=== PATIENT | male | born 1945 | race Caucasian/White ===

== ENCOUNTER 2023-12-10 19:57 | Inpatient (IN) | payer OTHER, SELFPAY ==
[2023-12-10 10:29] VITALS: BP 159/99
--- NOTE | 2023-12-10 11:14 | ED.GENMED ---
History of Present Illness
<Amna Ames PA-C - Last Filed: 12/10/23 17:45>
General
Chief Complaint: Swelling
Source: patient
Exam Limitations: none
Time Seen by Provider: 12/10/23 11:05
Nursing documentation reviewed up to this point in time: agreed with
Travel History
Have you had any contact with someone who has COVID-19?: No
Do you have any symptoms of coronavirus? Fever > 100 degrees, chills, cough, shortness of breath, sore throat, loss of taste or smell, muscle aches, or headache?: No
History of Present Illness
History of Present Illness:
Patient is a 78 year old male with hx afib on eliquis presenting for evaluation of atraumatic left wrist and elbow pain and swelling. Patient first noticed symptoms yesterday morning when he woke and has been worsening since. He denies any fever,
chills, chest pain, or shortness of breath. He denies any recent falls or trauma to left upper extremity. He denies any recent viruses or illnesses. No known bug bites or recent wounds on left hand.
Patient is compliant with eliquis. No history of gout.
Past History
<Amna Ames PA-C - Last Filed: 12/10/23 17:45>
Past History
ED Past Medical History: Arrthythmia (Atrial fibrillation), Asthma, CHF, GERD, HTN and Other (Melanoma, chronic kidney disease, admission for pneumonia November 2017, Lambert-Eaton myasthenic syndrome diagnosed 09/2022)
ED Past Surgical History: Other (Agree with documented past surgical history)
Social History
Tobacco: Former smoker
Alcohol: Daily
Drug: None
Personal:
Living: with family
Employment: Retired
Family History
Family History: Other (Reviewed and noncontributory)
Phy Exam
<Amna Ames PA-C - Last Filed: 12/10/23 17:45>
Physical Exam
Physical Exam:
General: In mild distress due to pain and non-toxic
Vitals: Hypertensive, otherwise VSS; afebrile
HEENT: protecting airway
Neck: appears supple
CV: RRR, heart sounds normal; no evidence of cyanosis
Resp: No evidence of respiratory distress, lungs clear; no accessory muscle use
Abd: Non-distended
Extremities: Redness and swelling of left wrist with obvious joint effusion; tenderness to lateral aspect of left elbow without any notable erythema or effusion
Neuro: alert and oriented to person, place, time; speech normal, no focal neurologic deficits
Psych: Normal affect
Skin: Intact, erythema and swelling of left wrist and hand
Scores
<Amna Ames PA-C - Last Filed: 12/10/23 17:45>
Heart Failure Risk
Heart Failure Risk Score: Not Applicable
Course
<KALLIE Somers Last Filed: 12/10/23 17:45>
Orders/Labs/Results
Orders:
Orders
12/10/23 11:17
Elbow, 3 view, Left [CR Elbow - Left Min 3 Views ] Urgent
Comment:
Reason For Exam: atraumatic left elbow pain
Wrist, Left 3 Views CR [CR Wrist - Left Min 3 Views] Urgent
Comment:
Reason For Exam: atraumatic pain and swelling left wrist/left hand
12/10/23 12:51
Oxycodone [Roxicodone] 10 mg PO NOW STA
12/10/23 13:28
Body Fluid Cell Count Urgent
What is the Body Fluid: joint
Date Specimen was Collected: 12/10/23
Time Specimen was Collected: 13:00
Comment: with DIFF
Fluid Culture with Gram Stain Urgent
DEYSI Source: Joint Fluid
Specimen Description:
Date Specimen was Collected: 12/10/23
Time Specimen was Collected: 13:00
12/10/23 13:42
C-Reactive Protein Urgent
Comment: ADD ON
Complete Blood Count/With Diff Urgent
Comprehensive Metabolic Panel Urgent
ESR [Erythrocyte Sed Rate] Urgent
Lyme Progressive Urgent
12/10/23 14:45
Add On- LAB Stat
Tests Added?: crp
12/10/23 15:57
Acetaminophen [Tylenol] 1,000 mg PO NOW STA
12/10/23 16:09
CefTRIAXone [Rocephin] 1,000 mg IV NOW STA
12/10/23 16:10
Morphine Sulfate 4 mg IV NOW STA
12/10/23 16:11
ORTHOPEDIC CONSULT Urgent
Consulting Provider: Dereck Estrella
Was physician already notified: Yes
12/10/23 16:18
Vancomycin [Vancocin] 2,000 mg 0.9% Sodium Chloride 500 ml [Nss] 500 ml IV NOW
12/10/23 16:58
Lactic Acid Routine
12/10/23 17:29
HYDROmorphone [Dilaudid] 1 mg .ROUTE .STK-MED ONE
Abnormal Lab Results
12/10/23
13:42
WBC 12.4 H 10^3/uL
(4.8-10.8)
RBC 4.06 L 10^6/uL
(4.70-6.10)
Hct 38.8 L %
(39.0-52.0)
MCV 95.6 H fL
(80.0-94.0)
MCH 32.3 H pg
(27.0-31.0)
Absolute Neuts (auto) 10.0 H 10^3/uL
(1.4-6.5)
Absolute Monos (auto) 0.9 H 10^3/uL
(0.1-0.6)
Neutrophils % 80.7 H %
(42.2-75.2)
Lymphocytes % 11.6 L %
(20.5-51.1)
ESR 50 H mm/hour
(0-20)
BUN 25 H mg/dl
(9-20)
Creatinine 1.5 H mg/dL
(0.7-1.3)
Glucose 109 H mg/dl
(70-99)
C-Reactive Protein 59.20 H mg/L
(0.0-10.00)
Total Protein 8.6 H g/dl
(6.3-8.2)
12/10/23 13:42
12/10/23 13:42
Vital Signs
Initial and Last Documented VS:
Initial Vital Signs
Temp Pulse Resp BP Pulse Ox
98.3 F 94 16 159/99 100
12/10/23 10:29 12/10/23 10:29 12/10/23 10:29 12/10/23 10:29 12/10/23 10:29
Last Documented Vital Signs
Temp Pulse Resp BP Pulse Ox
99.7 F 92 17 188/100 99
12/10/23 17:17 12/10/23 17:17 12/10/23 17:17 12/10/23 17:17 12/10/23 17:17
<Moncho Barreto, - Last Filed: 12/10/23 14:47>
Orders/Labs/Results
Orders:
Orders
12/10/23 11:17
Elbow, 3 view, Left [CR Elbow - Left Min 3 Views ] Urgent
Comment:
Reason For Exam: atraumatic left elbow pain
Wrist, Left 3 Views CR [CR Wrist - Left Min 3 Views] Urgent
Comment:
Reason For Exam: atraumatic pain and swelling left wrist/left hand
12/10/23 12:51
Oxycodone [Roxicodone] 10 mg PO NOW STA
12/10/23 13:28
Body Fluid Cell Count Urgent
What is the Body Fluid: joint
Date Specimen was Collected: 12/10/23
Time Specimen was Collected: 13:00
Comment: with DIFF
Fluid Culture with Gram Stain Urgent
DEYSI Source: Joint Fluid
Specimen Description:
Date Specimen was Collected: 12/10/23
Time Specimen was Collected: 13:00
12/10/23 13:42
C-Reactive Protein Urgent
Comment: ADD ON
Complete Blood Count/With Diff Urgent
Comprehensive Metabolic Panel Urgent
ESR [Erythrocyte Sed Rate] Urgent
Lyme Progressive Urgent
12/10/23 14:45
Add On- LAB Stat
Tests Added?: crp
12/10/23 15:57
Acetaminophen [Tylenol] 1,000 mg PO NOW STA
12/10/23 16:09
CefTRIAXone [Rocephin] 1,000 mg IV NOW STA
12/10/23 16:10
Morphine Sulfate 4 mg IV NOW STA
12/10/23 16:11
ORTHOPEDIC CONSULT Urgent
Consulting Provider: Dereck Estrella
Was physician already notified: Yes
12/10/23 16:18
Vancomycin [Vancocin] 2,000 mg 0.9% Sodium Chloride 500 ml [Nss] 500 ml IV NOW
12/10/23 16:58
Lactic Acid Routine
12/10/23 17:29
HYDROmorphone [Dilaudid] 1 mg .ROUTE .STK-MED ONE
Abnormal Lab Results
12/10/23
13:42
WBC 12.4 H 10^3/uL
(4.8-10.8)
RBC 4.06 L 10^6/uL
(4.70-6.10)
Hct 38.8 L %
(39.0-52.0)
MCV 95.6 H fL
(80.0-94.0)
MCH 32.3 H pg
(27.0-31.0)
Absolute Neuts (auto) 10.0 H 10^3/uL
(1.4-6.5)
Absolute Monos (auto) 0.9 H 10^3/uL
(0.1-0.6)
Neutrophils % 80.7 H %
(42.2-75.2)
Lymphocytes % 11.6 L %
(20.5-51.1)
ESR 50 H mm/hour
(0-20)
BUN 25 H mg/dl
(9-20)
Creatinine 1.5 H mg/dL
(0.7-1.3)
Glucose 109 H mg/dl
(70-99)
C-Reactive Protein 59.20 H mg/L
(0.0-10.00)
Total Protein 8.6 H g/dl
(6.3-8.2)
12/10/23 13:42
12/10/23 13:42
Vital Signs
Initial and Last Documented VS:
Initial Vital Signs
Temp Pulse Resp BP Pulse Ox
98.3 F 94 16 159/99 100
12/10/23 10:29 12/10/23 10:29 12/10/23 10:29 12/10/23 10:29 12/10/23 10:29
Last Documented Vital Signs
Temp Pulse Resp BP Pulse Ox
99.7 F 92 17 188/100 99
12/10/23 17:17 12/10/23 17:17 12/10/23 17:17 12/10/23 17:17 12/10/23 17:17
Procedures
<Amna Ames PA-C - Last Filed: 12/10/23 17:45>
Incision/Drainage/Joint Aspiration
Left Dorsal Wrist:
Preparation: cleaned with Hibiclens
Type of procedure: aspiration
Nature of site: other
How much fluid was obtained?: small amount
Fluid description: cloudy
Treatment: bandaid applied
<Amna Ames PA-C - Last Filed: 12/10/23 17:45>
MDM/Problems Addressed
Differential Diagnosis Includes:
inflammatory arthritis, gout, pseudogout, wrist fracture, septic arthritis, osteoarthritis
MDM/Problems Addressed:
Patient is a 78-year-old male with history A-fib, CHF, hypertension presenting for evaluation of atraumatic left wrist and elbow pain. Symptoms have been ongoing since yesterday�endorsing significant pain. No fever, chills. No history of gout.
No known bite or wound to area. Patient is in obvious distress on initial exam due to pain. He is hypertensive, afebrile. There is significant swelling and redness of left wrist with obvious effusion. There are some tenderness palpation on
lateral aspect of left elbow without any obvious effusion or redness. Suspect likely either inflammatory versus septic arthritis. Will give 10 mg oxycodone. Will check x-rays of left wrist and elbow.
X-ray showed no evidence of acute fracture or dislocation. Will perform arthrocentesis to discern whether inflammatory or septic. Will check basic labs, ESR and CRP.
Very small amount of cloudy fluid obtained during arthrocentesis of left wrist. Cell count of joint fluid shows WBC of 70,600 neutrophil predominant. Patient has mild leukocytosis 12.4 with left shift. CRP and ESR elevated. Mild renal
insufficiency noted on labs. Concern for septic arthritis. Discussed with orthopedics. Will admit to hospitalist for IV antibiotics and pain management. Starting IV vancomycin and IV ceftriaxone
Chronic conditions affecting care:
Atrial fibrillation, HTN, CHF
Acute Exacerbation and/or Progression of Chronic Illness:
Septic arthritis
<Amna Ames PA-C - Last Filed: 12/10/23 17:45>
*Radiology
Radiology exam reviewed: preliminary read by ED provider and radiology read reviewed
*Pulse Oximetry
Patient hypoxic: no
*Boilermaker Apprentice Interpretation
Rate: Boilermaker Apprentice- N/A
*Critical Care Note
Total Time (30-74mins, 75-104mins- exclusive of procedures): Not Applicable
<Moncho Barreto DO - Last Filed: 12/10/23 14:47>
Data Reviewed
Source: patient
Prescriptions/Medications Considered But Not Given:
Consider steroids but await fluid culture results
ED Attending Note
<Amna Ames PA-C - Last Filed: 12/10/23 17:45>
-
Portions of this chart may have been created with voice recognition software.� Occasional wrong word or��sound alike� substitutions may have occurred due to the inherent limitations of voice recognition software.
<Moncho Barreto DO - Last Filed: 12/10/23 14:47>
ED Attending Note
Patient seen and examined by attending physician: Yes
I performed the substantive portion of visit, reviewed & personally made and approve the management plan that is documented in note by myself or ROBERT.: Yes
ED Attending Note:
78-year-old male who presents with swelling and pain to left wrist. Also reports some pain to left elbow and is unsure if it is radiating or it is a separate problem. He denies fevers. He is a social alcohol drinker. Denies injury. Exam: Awake
and alert, left wrist with clear joint effusion and slight warmth and redness. Elbow without obvious joint effusion. Assessment and plan: Inflammatory versus septic. Check arthrocentesis and reassess
Discharge Plan
Departure
Patient Disposition: Admit
Date of Disposition: 12/10/23
Time of Disposition: 16:04
Presentation/result/management discussed w/ accepting MD/DO: Hospitalist
Discharge Problem:
Septic arthritis
Prescriptions:
No Action
torsemide 20 mg Tablet
40 mg PO DAILY
magnesium 250 mg Tablet
250 mg PO DAILY Qty: 0
acetaminophen 325 mg tablet
650 mg PO Q4HPRN PRN (Reason: mild pain/ fever>100.5F)
potassium 99 mg Tablet
99 mg PO DAILY
folic acid 1 mg Tablet
1 mg PO DAILY
Eliquis 2.5 mg tablet
2.5 mg PO BID
Referrals:
Peggy Rowell CRNP [Family Provider] -
Interventions
Interventions:
*Risk Screen - Suicide Last Done: 12/10/23 10:29
*General Assessment Last Done: 12/10/23 10:29
*Neglect/Abuse Screening Last Done: 12/10/23 10:29
ED- Fall Risk Assessment Last Done: 12/10/23 11:06
*ED COVID-19 Vaccine History Last Done: 12/10/23 11:06
ED- Pulmonary Assessment Last Done: 12/10/23 11:06
ED-Skin Assessment Last Done: 12/10/23 11:06
[2023-12-10] MEDS: ROXICODONE 10 MG PO (12:58)
[2023-12-10 13:57] LABS: % Basophils 0.1 % (0-2); % Eosinophils 0.2 % (0-6); % Immature Granulocytes 0.3 % (0-0.5); % Lymphocytes 11.6 % (20.5-51.1); % Monocytes 7.1 % (1.7-9.3); % Neutrophils 80.7 % (42.2-75.2); Absolute Lymphocytes 1.4 10^3/uL (1.2-3.4); Absolute Monocytes 0.9 10^3/uL (0.1-0.6); Hematocrit 38.8 % (39.0-52.0); Hemoglobin 13.1 g/dL (13.0-18.0); Mean Corp Hgb Conc. 33.8 g/dL (33.0-37.0); Mean Corpuscular Hgb 32.3 pg (27.0-31.0); Mean Corpuscular Volume 95.6 fL (80.0-94.0); Mean Platelet Volume 10.1 fL (7.4-10.4); Nucleated Red Blood Cells % 0 % (-); Platelet Count 185 10^3/uL (130-400); Red Blood Cell Count 4.06 10^6/uL (4.70-6.10); Red Cell Dist. Width 13.9 % (11.5-14.5); White Blood Cell Count 12.4 10^3/uL (4.8-10.8)
[2023-12-10 14:02] VITALS: BP 191/87
[2023-12-10 14:15] LABS: ALT (SGPT) 16 U/L (0-50); AST (SGOT) 25 U/L (17-59); Alkaline Phosphatase 65 U/L (38-126); Blood Urea Nitrogen 25 mg/dl (9-20); Calcium 9.9 mg/dl (8.4-10.2); Carbon Dioxide 23 mmol/L (22-30); Chloride 105 mmol/L (98-107); Glucose 109 mg/dl (70-99); Potassium 4.6 mmol/L (3.5-5.1); Sodium 138 mmol/L (135-145); Total Bilirubin 1.3 mg/dl (0.2-1.3); Total Protein 8.6 g/dl (6.3-8.2); eGFR 47.95
[2023-12-10 14:23] LABS: Erythrocyte Sed Rate 50 mm/hour (0-20)
[2023-12-10 14:27] LABS: Body Fluid WBC 70600 /CUMM
[2023-12-10 14:30] LABS: Body Fluid Second Tech SD
[2023-12-10 16:13] VITALS: BMI 34.8
[2023-12-10] MEDS: MORPHINE SULFATE 4 MG IV (16:23)
[2023-12-10] MEDS: ROCEPHIN 1000 MG IV (16:24)
--- NOTE | 2023-12-10 16:26 | HPS.HSE ---
Family Physician
-
Family Physician: TRUPTI Collins
Chief Complaint
-
Left wrist elbow joint pain
History of Present Illness
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 Prompted to visit the ED on second day when pain and swelling continue to
worsen. Left handed, denies any trauma at onset of symptoms. Reports history of coughing sore throat and some tongue swelling for the past week. Also endorses swollen lymph nodes same duration tender. Denies fever. Denies history of insect bite
or rash but also endorses son who lives with was diagnosed and treated for severe Lyme disease July 2023. Denies history of gout but also reports that he recently took care of his who had an acute gout flare for the past few weeks-endorses
that he and his have similar diet. Endorses drinking vodka on weekends 2 shots in a sitting. ED eval was significant for mild leukocytosis 12.4 mild inflammatory marker elevations CRP ESR. Arthrocentesis wrist effusion yielded white count
70,600. Mild tachycardia 90s attributable to pain, with leukocytosis however concerning for possible sepsis. No hypotension or lactic acidosis noted. Uric acid noted elevated at 9.4. Wrist and elbow x-rays were negative for acute abnormalities
except for effusion at elbow.
Medical History
Past Medical History
Past Medical History: Reports Other (as above)
Past Surgical History: Reports Other (as above)
Social History
Tobacco: Non-smoker
Alcohol: Occasional
Drug: None
Personal:
Living: With Family
Employment: Retired
Family History
Family History: Not pertinent (reviewed)
Allergies / Home Medications
Allergies reflects when Allergies were last updated in [employer]
Home Medications with original date entered in [employer]
Allergy/Medication List:
Allergies
Allergy/AdvReac Type Severity Reaction Status Date / Time
apple Allergy ITCHY MOUTH Verified 12/10/23 10:28
monosodium glutamate Allergy restless Verified 12/10/23 10:28
in bed
peach Allergy ITCHY MOUTH Verified 12/10/23 10:28
pollen extracts Allergy TRIGGERS Verified 12/10/23 10:28
ASTHMA
ragweed pollen Allergy TRIGGERS Verified 12/10/23 10:28
ASTHMA
Home Medications
magnesium 250 mg tablet 250 mg PO DAILY Supplement ##0 09/28/22
torsemide 20 mg tablet 40 mg PO DAILY Fluid retention/Swelling 09/28/22
acetaminophen 325 mg tablet 650 mg PO Q4HPRN PRN mild pain/ fever>100.5F 11/05/22
apixaban 2.5 mg tablet (Eliquis) 2.5 mg PO BID Blood Clot Prevention/Tx 12/10/23
folic acid 1 mg tablet 1 mg PO DAILY Supplement 12/10/23
potassium 99 mg tablet 99 mg PO DAILY Supplement 12/10/23
Review of Systems
-
A 12 point ROS was completed and negative except as noted: Yes
Constitutional: Reports Other (as below)
Physical Exam
Vital Signs
Vital Signs
Temp Pulse Resp BP Pulse Ox
98.9 F 98 20 191/87 98
12/10/23 14:02 12/10/23 14:02 12/10/23 14:02 12/10/23 14:02 12/10/23 14:02
Physical Exam
General: Other (as below)
Laboratory Results
-
12/10/23 13:42
12/10/23 13:42
Laboratory Results
Total Bilirubin 1.3 mg/dl (0.2-1.3) 12/10/23 13:42
AST 25 U/L (17-59) 12/10/23 13:42
ALT 16 U/L (0-50) 12/10/23 13:42
Alkaline Phosphatase 65 U/L (38-126) 12/10/23 13:42
Impression/Plan
-
ROS
General: Denies fever unexpected weight loss reports intermittent chills but appears more chronic in nature than acute
Neuro: Denies seizure shaking loss of consciousness dizziness vertigo
Psych: denies depression hallucinations confusion manic episodes
Endocrine: Denies polyuria polydipsia polyphagia heat/cold intolerance
HEENT: Denies blindness visual disturbances epistaxis reports nodular swelling neck tender sore throat coughing some tongue swelling
Pulmonary: Reports coughing denies hemoptysis sneezing sob dyspnea on exertion
Cardiovascular: denies chest pain palpitations leg swelling
Hematology: denies signs symptoms of anemia easy bruising/bleeding
Gastrointestinal: denies nausea vomiting diarrhea constipation hematemesis hematochezia melena
Genito-Urinary: denies retention incontinence dysuria
Musculoskeletal: Pain and swelling left wrist and elbow joints
Dermatology: denies rash laceration bruising
Physical Exam
General: No pallor, cyanosis, or jaundice.
HEENT: PERRLA Normocephalic atraumatic some throat erythema noted possible mild erythema and swelling also noted
NECK: Nodular tender lymph nodes palpable tender also possible thyroid nodules noted
RESPIRATORY: Lungs clear to auscultation. No crackles wheezes stridor. Respiratory status stable on room air
CVS: S1, S2 normal. RRR. No murmur, rub or gallop.
ABDOMEN: Soft, non-tender. No distension. BS+/normal.
EXTREMITIES: No peripheral cyanosis or edema. Significant restriction of motion left upper extremity due to pain otherwise rest of upper extremities lower extremities strength appears intact 5 out of 5
MACHINE DESIGN CHECKER: AOx3. 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
IMPRESSION:
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 Prompted to visit the ED on second day when pain and swelling continue to
worsen. Left handed, denies any trauma at onset of symptoms. Reports history of coughing sore throat and some tongue swelling for the past week. Also endorses swollen lymph nodes same duration tender. Denies fever. Denies history of insect bite
or rash but also endorses son who lives with was diagnosed and treated for severe Lyme disease July 2023. Denies history of gout but also reports that he recently took care of his who had an acute gout flare for the past few weeks-endorses
that he and his have similar diet. Endorses drinking vodka on weekends 2 shots in a sitting. ED eval was significant for mild leukocytosis 12.4 mild inflammatory marker elevations CRP ESR. Arthrocentesis wrist effusion yielded white count
70,600. Mild tachycardia 90s attributable to pain, with leukocytosis however concerning for possible sepsis. No hypotension or lactic acidosis noted. Uric acid noted elevated at 9.4. Wrist and elbow x-rays were negative for acute abnormalities
except for effusion at elbow.
PLAN:
#Possible septic arthritis versus gout flare
Telemetry admit
Orthopedic eval requested
ID eval requested
Continue empiric Vanco ceftriaxone
Trend WBC
Prednisone 15 mg twice a day started for possible gout flare, lowest dose and twice a day given concern possible interaction with Mestinon
Follow cultures
#Swollen lymph nodes
#Possible thyroid nodules
#Possible strep throat
Cervical ultrasound
Follow-up TSH reflex T4 in a.m.
Already on antibiotics as above
ID eval
#Mild Swollen tongue no respiratory issues
possible infection related vs nutritional deficiency
checking B12 Iron studies
starting multivitamin
#History of Lyme disease in family lives in the same household
#Polyarticular joint pain
ID eval as above
Less likely given above differentials though
#Paroxysmal A-fib
Will hold home Eliquis dose at this time given possible orthopedic intervention
#CHF
Appears euvolemic at this time
Daily weights I/O
Given concern possible gout flare will hold torsemide at this time
#Lambert-Eaton syndrome
Continue home Mestinon
RAFAT versus CKD 3
Initial creatinine 1.5 possible baseline versus RAFAT
Will monitor for now
DVT prophylaxis SCD
GI prophylaxis Protonix
Meds reconciled and resume as appropriate
Full code
I spent a total of 76 minutes with the patient or on the floor. More than 50% of this time involved counseling and coordination of care.
[2023-12-10] MEDS: VANCOCIN 540 MG IV (16:56)
[2023-12-10 17:02] LABS: Lyme Antibody Screen, EIA Negative (Negative)
[2023-12-10 17:17] VITALS: BP 188/100
[2023-12-10] MEDS: DILAUDID 1 MG IV (17:33)
[2023-12-10 17:58] LABS: Lactic Acid 0.8 mmol/L (0.7-2.0)
[2023-12-10 19:00] LABS: Uric Acid 9.4 mg/dl (3.5-8.5)
[2023-12-10 20:40] VITALS: BP 174/99
[2023-12-10 20:42] VITALS: BMI 34.5
--- NOTE | 2023-12-10 20:57 | PHA.VAN.IN ---
Assessment
- Assessment
Renal Function: Appears elevated from baseline (11/07/22 BASELINE SCR: 1.2)
Concomitant Antimicrobials: ROCEPHIN
- Previous Dosing Experience
Previous Regimen: SINGLE DOSE ONLY
Date of Regimen: 02/18/21
Provided Trough of: UNKNOWN
Provided AUC of: UNKNOWN
AUC Dosing Plan
- Dosing Variables
Dosing Weight (kg): 115.3
Dosing CrCl (ml/min): 55
Vd coefficient (L/kg): 0.6
- Empiric Dosing
Initial / Loading Dose: 2GM
Maintenance Regimen: 1750MG IV Q24H
Estimated AUC (mcg*h/mL): 531
Estimated Peak (mcg*h/mL): 36.2
Estimated Trough (mcg/ml): 12
Estimated Half Life (H): 13.8
Pharmacokinetics Vancomycin I
- -
Patient Age: 78
Patient Sex: Male
Vancomycin Day #: 1
Indication: [facility] (SEPTIC ARTHRITS)
Requesting Provider: SHARLA
Height / Weight:
Height 6 ft
Actual Weight 115.298 kg
Pertinent Past Medical History: OBESEITY
- Vital Signs / Lab Results
Temp Pulse Resp BP Pulse Ox
98.3 F 98 16 174/99 99
12/10/23 20:40 12/10/23 20:40 12/10/23 20:40 12/10/23 20:40 12/10/23 20:40
Lab Results - Hematology
12/10/23
13:42
WBC 12.4 H
Lab Results - Chemistry
12/10/23
13:42
BUN 25 H
Creatinine 1.5 H
Albumin 5.0
12/10/23
17:38
Lactic Acid 0.8
Microbiology Results
12/10/23 13:28 Gram Stain - Preliminary
Joint Fluid
[2023-12-10] MEDS: APRESOLINE 5 MG IV (21:24)
[2023-12-10] MEDS: DELTASONE 15 MG PO (21:25)
[2023-12-10] MEDS: DILAUDID 0.5 MG IV (21:25)
[2023-12-10] MEDS: TYLENOL 1000 MG PO (21:29)
[2023-12-10 23:38] VITALS: BP 145/89
[2023-12-11] MEDS: DILAUDID 0.5 MG IV ×2 (02:28→06:25)
[2023-12-11 03:05] VITALS: BP 144/80
[2023-12-11] MEDS: VANCOCIN 535 MG IV (06:25)
[2023-12-11 06:27] VITALS: BMI 33.7
[2023-12-11 07:24] LABS: Hematocrit 35.3 % (39.0-52.0); Mean Corpuscular Hgb 32.5 pg (27.0-31.0); Mean Corpuscular Volume 95.7 fL (80.0-94.0); Mean Platelet Volume 10.2 fL (7.4-10.4); Platelet Count 172 10^3/uL (130-400); Red Blood Cell Count 3.69 10^6/uL (4.70-6.10); Red Cell Dist. Width 13.7 % (11.5-14.5)
--- NOTE | 2023-12-11 07:28 | W.PN.HOSP.TC ---
Today's Communication/Plan
-
cont steroids
monitor off abx
follow cultures
PT/OT
Assessment / Plan
Assessment / Plan
Physical Exam
General: No pallor, cyanosis, or jaundice.
HEENT: PERRLA Normocephalic atraumatic
NECK: palpable Nodular thyroid nodules noted
RESPIRATORY: Lungs clear to auscultation. No crackles wheezes stridor.� Respiratory status stable on room air
CVS: S1, S2 normal. RRR.� No murmur, rub or gallop.
ABDOMEN: Soft, non-tender. No distension. BS+/normal.
EXTREMITIES: No peripheral cyanosis or edema.� Significant restriction of motion left upper extremity due to pain (since improved) otherwise rest of upper extremities lower extremities strength appears intact 5 out of 5
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
IMPRESSION:
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
worsen.� Left handed, denies any trauma at onset of symptoms.� Reports history of coughing sore throat and some tongue swelling for the past week.� Also endorses swollen lymph nodes same duration tender.� Denies fever.� Denies history of insect bite
or rash but also endorses son who lives with was diagnosed and treated for severe Lyme disease July 2023.� Denies history of gout but also reports that he recently took care of his who had an acute gout flare for the past few weeks-endorses
that he and his have similar diet.� Endorses drinking vodka on weekends 2 shots in a sitting.� ED eval was significant for mild leukocytosis 12.4 mild inflammatory marker elevations CRP ESR.� Arthrocentesis wrist effusion yielded white count
70,600.� Mild tachycardia 90s attributable to pain, with leukocytosis however concerning for possible sepsis.� No hypotension or lactic acidosis noted.� Uric acid noted elevated at 9.4.� Wrist and elbow x-rays were negative for acute abnormalities
except for effusion at elbow.
PLAN:
#Possible septic arthritis versus gout flare
Telemetry admit
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
Trend WBC
Prednisone 15 mg twice a day started for possible gout flare, lowest dose and twice a day given concern possible interaction with Mestinon
Follow cultures
#Swollen lymph nodes since resolved
#thyroid nodules
#Possible strep throat since resolved
Cervical ultrasound appreciated 2 thyroid nodules, follow-up surveillance recommended 1 year
TSH wnl
#Mild Swollen tongue no respiratory issues since resolved
B12 wnl
Iron studies noted mild iron deficiency possible anemia of chronic disease (oral iron supplementation started)
started multivitamin
#Paroxysmal A-fib
Will hold home Eliquis dose at this time given possible orthopedic intervention
#CHF
Appears euvolemic at this time
Daily weights I/O
Given concern possible gout flare will hold torsemide at this time
#Lambert-Eaton syndrome
Continue home Mestinon, monitor while on prednisone for gout, potential interaction
Neuro eval requested
RAFAT versus CKD 3
Initial creatinine 1.5 possible baseline versus RAFAT
Cr appears stable
cont to monitor
DVT prophylaxis SCD
GI prophylaxis Protonix
Full code
I spent a total of� 56� � minutes with the patient or on the floor. More than 50% of this time involved counseling and coordination of care.
Anticipated Discharge: 24 - 48 hours
Subjective/Interval History
-
Date of Service: December 11, 2023
No acute distress. Reports improvement in left arm symptoms pain swelling joints elbow and wrist
Objective Data
-
Labs:
Laboratory Results
12/11/23
06:13
WBC 12.0 H
Hgb 12.0 L
Hct 35.3 L
Plt Count 172
Sodium Pending
Potassium Pending
Chloride Pending
Carbon Dioxide Pending
BUN Pending
Creatinine Pending
Glucose Pending
Calcium Pending
Vital Signs:
Vital Signs
Temp Pulse Resp BP Pulse Ox
98.3 F 93 16 144/80 97
12/11/23 03:05 12/11/23 03:05 12/11/23 03:05 12/11/23 03:05 12/11/23 03:05
I&O
12/10/23 12/11/23 12/12/23
06:59 06:59 06:59
Intake Total 480 / 480
Balance 480 / 480
[2023-12-11 07:30] VITALS: BP 142/76
[2023-12-11] MEDS: DELTASONE 15 MG PO ×2 (07:38→20:59)
[2023-12-11] MEDS: FOLVITE 1 MG PO (07:38)
[2023-12-11] MEDS: PROTONIX 40 MG PO (07:38)
[2023-12-11] MEDS: THERAGRAN 1 TABLET PO (07:38)
[2023-12-11] MEDS: TYLENOL 1000 MG PO ×3 (07:38→20:59)
[2023-12-11] MEDS: MESTINON 60 MG PO ×2 (07:39→09:09)
[2023-12-11 08:13] LABS: Blood Urea Nitrogen 24 mg/dl (9-20); Calcium 9.1 mg/dl (8.4-10.2); Carbon Dioxide 19 mmol/L (22-30); Chloride 105 mmol/L (98-107); Estimated Creatinine Clearance 58 ml/min; Glucose 112 mg/dl (70-99); Iron 43 ug/dl (49-181); Potassium 4.4 mmol/L (3.5-5.1); Sodium 136 mmol/L (135-145); eGFR 52.09
[2023-12-11 08:22] LABS: Percent Saturation 12 % (20-50); Total Iron Binding Capacity 334 ug/dl (261-462)
[2023-12-11 08:44] LABS: TSH Reflex To Free T4 1.11 uIU/ml (0.47-4.68)
--- NOTE | 2023-12-11 08:57 | PHA.VAN.FU ---
Vancomycin Assessment / Plan
- Assessment
Renal Function: Stable
WBC's are: Stable
In the past 24 hrs, patient has been: Afebrile
Concomitant Antimicrobials: ceftriaxone
- Dosing Plan
Adjust Regimen to: dosing by level
Dosing Comments: suspect with BMI and SCR, will not follow population PK
Received 2g 12/10 16:56 PLUS 1750mg 12/11 06:25
- Monitoring Plan
Random Level: 12/12 0600
- Follow Up
Pharmacy will continue to follow.
Vancomycin Follow UP
- -
Patient Age: 78
Patient Sex: Male
Vancomycin Day #: 2
Indication: [facility]
Requesting Provider: Dr. Sharpe
Pertinent Antimicrobial Allergies:
no pertinent antibiotic allergies
Height / Weight:
Height 6 ft
Actual Weight 112.7 kg
Pertinent Past Medical History: BMI ~34, CKD
- Vital Signs / Lab Results
Temp Pulse Resp BP Pulse Ox
99.3 F 96 18 142/76 97
12/11/23 07:30 12/11/23 07:30 12/11/23 07:30 12/11/23 07:30 12/11/23 07:30
Lab Results - Hematology
12/10/23 12/11/23
13:42 06:13
WBC 12.4 H 12.0 H
Lab Results - Chemistry
12/10/23 12/11/23
13:42 06:13
BUN 25 H 24 H
Creatinine 1.5 H 1.4 H
Estimated Creat Clear 58
Albumin 5.0
12/10/23
17:38
Lactic Acid 0.8
Microbiology Results
12/10/23 13:28 Gram Stain - Preliminary
Joint Fluid
[2023-12-11 09:00] LABS: Vitamin B12 505 pg/ml (239-931)
--- NOTE | 2023-12-11 09:49 | CM ---
Patient seen bedside.
IA completed.
patient lives with spouse, son and grand-kids.
Patient and spouse have a basement apartment in the 3 story home, one flight down.
Patient ambulates with a cane,does have a RW available in the home.
Patient independent prior to admission.
Not current with [facility], but had [facility] in the past.
Denies home care needs at this time.
PCP: Dr Rowell
Pharmacy: [facility]
Plan:home no needs anticipated.
[2023-12-11 11:30] VITALS: BP 143/76
[2023-12-11] MEDS: DILAUDID 1 MG IV (12:09)
[2023-12-11] MEDS: MESTINON 120 MG PO ×3 (12:10→20:59)
--- NOTE | 2023-12-11 14:08 | W.PN.UPDATE ---
Update Note
Progress Note Update
Full H&P to follow
78-year-old male [id number] admitted for atraumatic left hand and wrist pain and swelling. Aspirate obtained in the ER with elevated WBC pending cultures and insufficient volume for crystal analysis. Currently on broad-spectrum
antibiotics and low-dose steroid
Patient was seen and examined by Dr. Youssef
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 His symptoms are likely improving with current treatment plan; ultrasound-guided aspirate was attempted of the left wrist with confirmed
intra-articular placement but no obvious effusion under ultrasound and none yielded into the syringe.
Continue with splint and soft tissue rest of the left hand.
Will continue to monitor cultures but otherwise recommend treating with current steroid and antibiotics; if cultures persist negative recommend focused treatment for inflammatory arthropathy
[2023-12-11] MEDS: APRESOLINE 5 MG IV (14:19)
[2023-12-11 15:15] VITALS: BP 132/69
--- NOTE | 2023-12-11 16:19 | CON.ID ---
Consultation
-
Date/Time Consultation Requested: 12/10/23 20:01
Date/Time Consultation Performed: 12/11/23 16:20
Requesting Provider: Dr Sharpe
Performing Provider: Dr Lantigua
Reason for Consultation: possible septic arthritis vs gout flare, also possible strep throat
Chief Complaint / Past History
Chief Complaint
Left wrist elbow joint pain
History of Present Illness
Mr Carter is a 78 year old male with history of Lambert-Eaton syndrome on mestinon, CHF, who presented here yesterday for left elbow and wrist swelling along with pain x2 days. No trauma. Does report cough and sore throat x 1 week along with
lymphadenopathy. No fevers. with recent gout flare and they have similar diet. No personal history of gout. Vodka 2 shots on the weekends.
Since arrival no fevers, bp stable, wbc count initially 12.4, hgb 12, plt 172, a L shift was noted, esr 50, cr 1.4 which is around his baseline, lactic acid 0.7, crp 59, uric acid 9.4, s/p arthrocentesis with 70K WBC, 95% PMNs, body fluid moderate
wbcs, body fluid crystals 'canceled' due to insufficient volume - no organisms Xray wrist and elbow: elbow effusion, patient started on steroids, vanc, cephalosporin, ID is consulted for assistance with managment.
Past History
Additional Past Medical History:
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
Past Surgical History: None
Allergy History:
apple Allergy (Verified 12/10/23 10:28)
ITCHY MOUTH
monosodium glutamate Allergy (Verified 12/10/23 10:28)
restless in bed
peach Allergy (Verified 12/10/23 10:28)
ITCHY MOUTH
pollen extracts Allergy (Verified 12/10/23 10:28)
TRIGGERS ASTHMA
ragweed pollen Allergy (Verified 12/10/23 10:28)
TRIGGERS ASTHMA
Medications Reviewed: Yes
Social History
Tobacco: Non-Smoker
Alcohol: Occasional
Drug: None
Family History
Family History: Not Pertinent
Review of Systems
Review of Systems
General: Negative Fever or Chills
All systems: All other systems were reviewed and were negative
Vital Signs
Temp Pulse Resp BP Pulse Ox
98.2 F 87 19 132/69 97
12/11/23 15:15 12/11/23 15:15 12/11/23 15:15 12/11/23 15:15 12/11/23 15:15
Physical Exam
Physical Exam
Constitutional: No Acute Distress
Cardiovascular: Regular Rate and S1/S2; Negative Murmur or Rub
Pulmonary: Clear and Symmetric; Negative Wheezes, Rales or Rhonchi
Gastrointestinal: Soft, Non Tender, Non Distended and Normal Bowel Sounds
Extremities: Other (mild swelling of the L elbow, no swelling of the L wrist (wrapped), not tenderness to light touch this afternoon)
Skin: Warm and Dry; Negative Rash or Jaundice
Lab / Diagnostic Study Results
12/11/23 06:13
12/11/23 06:13
Abs Immat Gran (auto) 0.0 10^3/uL (0-0.05) 12/10/23 13:42
Absolute Neuts (auto) 10.0 10^3/uL (1.4-6.5) H 12/10/23 13:42
Absolute Lymphs (auto) 1.4 10^3/uL (1.2-3.4) 12/10/23 13:42
Absolute Monos (auto) 0.9 10^3/uL (0.1-0.6) H 12/10/23 13:42
Absolute Basos (auto) 0.0 10^3/uL (0-0.2) 12/10/23 13:42
Immature Gran % 0.3 % (0-0.5) 12/10/23 13:42
Neutrophils % 80.7 % (42.2-75.2) H 12/10/23 13:42
Lymphocytes % 11.6 % (20.5-51.1) L 12/10/23 13:42
Monocytes % 7.1 % (1.7-9.3) 12/10/23 13:42
Eosinophils % 0.2 % (0-6) 12/10/23 13:42
Basophils % 0.1 % (0-2) 12/10/23 13:42
ESR 50 mm/hour (0-20) H 12/10/23 13:42
Lactic Acid 0.8 mmol/L (0.7-2.0) 12/10/23 17:38
C-Reactive Protein 59.20 mg/L (0.0-10.00) H 12/10/23 13:42
Microbiology Results
Micro:
12/10/23 13:28 Body Fluid Culture - Preliminary
Joint Fluid Gram Stain - Preliminary
Assessment / Plan
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
- body fluid suggestive of crystalline arthritis, gram stain no organisms, uric acid elevated
- stopped antibiotics
- continue steroids
- follow up with PCP
--- NOTE | 2023-12-11 16:42 | CON.ORTHO ---
Consultation
-
Date/Time Consultation Requested: 12/10/23 16:11
Date/Time Consultation Performed: 12/11/23 08:00
Requesting Provider: Dr. Adrien Lowery
Performing Provider: KALLIE Steve, Dr. Alan Youssef
Reason for Consultation: Left wrist pain
Consultation - Orthopedics
History
78-year-old [id number]-[id number] male presenting to the [place] emergency room 10 December 2023 for atraumatic wrist pain and swelling with significant past medical history of chronic kidney disease and Lambert-Eaton syndrome. Reported symptoms
ongoing for 2 days prior to evaluation at the emergency room. He was afebrile at that time and denies any recent trauma or injury when pain began. He does report a recent gout flare in a similar diet towards his which may be relative. He was
seen at the emergency room and underwent an aspiration by palpation after inflammatory markers were noted to be elevated which showed an elevated WBC count; orthopedics was consulted for concern for septic wrist. There is insufficient aspirate
volume for crystal testing and cultures are pending at this time
Allergies / Home Medications
Past History
Past Medical History: Arrthythmia (Atrial fibrillation), Asthma, CHF, GERD, HTN and Other (Melanoma, chronic kidney disease, admission for pneumonia November 2017, Lambert-Eaton myasthenic syndrome diagnosed 09/2022)
Past Surgical History: Verified
Social History
Tobacco: Former smoker
Alcohol: Daily
Drug: None
Personal:
Living: with family
Employment: Retired
Family History
Family History: Other (Reviewed and noncontributory)
Allergy/AdvReac Type Severity Reaction Status Date / Time
apple Allergy ITCHY MOUTH Verified 12/10/23 10:28
monosodium glutamate Allergy restless Verified 12/10/23 10:28
in bed
peach Allergy ITCHY MOUTH Verified 12/10/23 10:28
pollen extracts Allergy TRIGGERS Verified 12/10/23 10:28
ASTHMA
ragweed pollen Allergy TRIGGERS Verified 12/10/23 10:28
ASTHMA
Medication Instructions Recorded
magnesium 250 mg tablet 250 mg PO DAILY Supplement ##0 09/28/22
torsemide 20 mg tablet 40 mg PO DAILY Fluid 09/28/22
retention/Swelling
acetaminophen 325 mg tablet 650 mg PO Q4HPRN PRN mild pain/ 11/05/22
fever>100.5F
apixaban 2.5 mg tablet (Eliquis) 2.5 mg PO BID Blood Clot 12/10/23
Prevention/Tx
folic acid 1 mg tablet 1 mg PO DAILY Supplement 12/10/23
potassium 99 mg tablet 99 mg PO DAILY Supplement 12/10/23
pyridostigmine bromide 60 mg 120 mg PO QID MYESTHENIA 12/11/23
tablet (Mestinon)
Vital Signs / Lab Results
Temp Pulse Resp BP Pulse Ox
98.2 F 87 19 132/69 97
12/11/23 15:15 12/11/23 15:15 12/11/23 15:15 12/11/23 15:15 12/11/23 15:15
Physical examination: Examination of the left upper extremity shows edema and soft tissue swelling of the left wrist and hand. There is no specific effusion noted about the left wrist. No significant cellulitis or erythema. He is neurovascular
intact C5-T1 with sensation intact light touch the radial ulnar median nerve distributions motor function tact AIN PIN and ulnar nerve brisk capillary fill is 2 seconds. He has pain with generalized wrist range of motion and reduced hand motion
secondary to swelling as well as pain
12/11/23 06:13
12/11/23 06:13
Imaging: X-rays taken of the left wrist show no acute or significant chronic osseous abnormalities. No evidence of chondrocalcinosis
Labs: Labs other than detailed as above show current white count of 12, uric acid 9.4, CRP 59.20
-Cell count shows 70,600 left wrist aspirate with 95% polymorphonuclear cells. Culture pending
Assessment / Plan
78-year-old male with atraumatic left wrist and hand pain and swelling with elevated cell count with pending labs of cultures with improvement of symptoms with IV antibiotics as well as oral steroids
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
intra-articular placement but no obvious effusion under ultrasound and none yielded into the syringe.
Continue with splint and soft tissue rest of the left hand.
Will continue to monitor cultures but otherwise recommend treating with current steroid and antibiotics; if cultures persist negative recommend focused treatment for inflammatory arthropathy. Orthopedic surgery will continue to follow pending
culture results
[2023-12-11 19:27] VITALS: BP 145/85
[2023-12-11 23:45] VITALS: BP 146/75
[2023-12-12 03:15] VITALS: BP 159/91
[2023-12-12] MEDS: APRESOLINE 5 MG IV (04:00)
--- NOTE | 2023-12-12 04:40 | DOWNTIME ---
There was a [employer] Client Tourism Radio Presenter Downtime on 12/12/2023 from 0111 to 12/12/2023 at 0405. Downtime documentation of patient's care, including medication administrations, has been reconciled in the electronic record per guidelines. Refer to the
patient's paper chart under the miscellaneous tab to see printed paper medication records and downtime forms.
[2023-12-12 05:17] VITALS: BP 139/82
[2023-12-12 06:00] VITALS: BMI 34.0
--- NOTE | 2023-12-12 07:13 | W.PN.HOSP.TC ---
Addendum entered and electronically signed by Primo Sharpe MD 12/13/23 21:46:
Chronic HFpEF stable
Original Note:
Today's Communication/Plan
-
discharge
Assessment / Plan
Assessment / Plan
Physical Exam
General: No pallor, cyanosis, or jaundice.
HEENT: PERRLA Normocephalic atraumatic
NECK: palpable Nodular thyroid nodules noted
RESPIRATORY: Lungs clear to auscultation. No crackles wheezes stridor.� Respiratory status stable on room air
CVS: S1, S2 normal. RRR.� No murmur, rub or gallop.
ABDOMEN: Soft, non-tender. No distension. BS+/normal.
EXTREMITIES: No peripheral cyanosis or edema.� Significant restriction of motion left upper extremity due to pain (since improved) otherwise rest of upper extremities lower extremities strength appears intact 5 out of 5
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
IMPRESSION:
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
worsen.� Left handed, denies any trauma at onset of symptoms.� Reports history of coughing sore throat and some tongue swelling for the past week.� Also endorses swollen lymph nodes same duration tender.� Denies fever.� Denies history of insect bite
or rash but also endorses son who lives with was diagnosed and treated for severe Lyme disease July 2023.� Denies history of gout but also reports that he recently took care of his who had an acute gout flare for the past few weeks-endorses
that he and his have similar diet.� Endorses drinking vodka on weekends 2 shots in a sitting.� ED eval was significant for mild leukocytosis 12.4 mild inflammatory marker elevations CRP ESR.� Arthrocentesis wrist effusion yielded white count
70,600.� Mild tachycardia 90s attributable to pain, with leukocytosis however concerning for possible sepsis.� No hypotension or lactic acidosis noted.� Uric acid noted elevated at 9.4.� Wrist and elbow x-rays were negative for acute abnormalities
except for effusion at elbow.
PLAN:
#Possible septic arthritis versus gout flare (more likely gout flare)
Telemetry admit
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
Trend WBC
Prednisone 15 mg twice a day started for likely gout flare, lowest dose and twice a day given concern possible interaction with Mestinon
Follow cultures NGTD
#Swollen lymph nodes since resolved
#thyroid nodules
#Possible strep throat since resolved
Cervical ultrasound appreciated 2 thyroid nodules, follow-up surveillance recommended 1 year
TSH wnl
#Mild Swollen tongue no respiratory issues since resolved
B12 wnl
Iron studies noted mild iron deficiency possible anemia of chronic disease (oral iron supplementation started)
started multivitamin
#Paroxysmal A-fib
Eliquis held for possible orthopedic intervention
ok to resume on discharge.
#CHF
Appears euvolemic at this time
Daily weights I/O
Torsemide held due to concern gout flare. ok to resume on discharge
#Lambert-Eaton syndrome
Continue home Mestinon
likely CKD 3
Cr stable
DVT prophylaxis SCD
GI prophylaxis Protonix
Full code
Medically stable for discharge home with home services and outpatient follow up recommendations.
Total Time Preparing Discharge ___50____ minutes including examination of the patient, summary of the hospital stay, instructions for continuing care to all relevant caregivers; and preparation of discharge records, prescriptions, and referral
forms if necessary.
Anticipated Discharge: Today
Subjective/Interval History
-
Date of Service: December 12, 2023
No acute distress, reports feeling well. Pain controlled with current regimen. Denies new acute issues. Eager to go home.
Objective Data
-
Labs:
Laboratory Results
12/12/23
06:21
WBC Pending
Hgb Pending
Hct Pending
Plt Count Pending
Sodium Pending
Potassium Pending
Chloride Pending
Carbon Dioxide Pending
BUN Pending
Creatinine Pending
Glucose Pending
Calcium Pending
Vital Signs:
Vital Signs
Temp Pulse Resp BP Pulse Ox
97.9 F 75 16 139/82 97
12/12/23 03:15 12/12/23 03:15 12/12/23 03:15 12/12/23 05:17 12/12/23 03:15
I&O
12/11/23 12/12/23 12/13/23
06:59 06:59 06:59
Intake Total 480 / 480 1495 / 1495
Balance 480 / 480 1495 / 1495
[2023-12-12 07:30] VITALS: BP 152/62
[2023-12-12] MEDS: PROTONIX 40 MG PO (07:44)
[2023-12-12] MEDS: TYLENOL 1000 MG PO ×2 (07:45→15:34)
[2023-12-12] MEDS: THERAGRAN 1 TABLET PO (07:45)
[2023-12-12] MEDS: DELTASONE 15 MG PO (07:45)
[2023-12-12] MEDS: DILAUDID 0.5 MG IV ×2 (07:45→12:05)
[2023-12-12] MEDS: MESTINON 120 MG PO ×2 (07:45→12:05)
[2023-12-12] MEDS: FOLVITE 1 MG PO (07:45)
[2023-12-12 07:58] LABS: Hematocrit 34.1 % (39.0-52.0); Hemoglobin 11.7 g/dL (13.0-18.0); Mean Corp Hgb Conc. 34.3 g/dL (33.0-37.0); Mean Corpuscular Hgb 32.1 pg (27.0-31.0); Mean Corpuscular Volume 93.4 fL (80.0-94.0); Mean Platelet Volume 10.6 fL (7.4-10.4); Platelet Count 189 10^3/uL (130-400); Red Blood Cell Count 3.65 10^6/uL (4.70-6.10); Red Cell Dist. Width 13.8 % (11.5-14.5); White Blood Cell Count 11.4 10^3/uL (4.8-10.8)
--- NOTE | 2023-12-12 08:04 | W.PN.UPDATE ---
Update Note
Progress Note Update
Mr. Carter is resting comfortably in his chair this morning. He reports the pain, swelling and tenderness in his left wrist have improved since his initial admission. He does endorse slight increase in swelling of his left thumb, but otherwise has no
questions or concerns at this time. He is eager for discharge home.
Directed exam of the left upper extremity reveals short arm splint intact. Mild edema throughout the fingers and wrist. Hue of erythema overlying the wrist and thumb. No tenderness to palpation throughout the wrist or hand. Patient able to make
composite fist and fully extend fingers. Sensation intact to light touch. Capillary refill <2 seconds.
78-year-old male with atraumatic left wrist and hand pain and swelling with elevated cell count. Patient continues to improve with IV antibiotics and oral steroids.
--Labs pending this AM. Cultures pending.
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
--Will continue to monitor cultures but otherwise recommend treating with current steroid and antibiotics; if cultures persist negative recommend focused treatment for inflammatory arthropathy. Orthopedic surgery will continue to follow pending
culture results.
[2023-12-12 08:32] LABS: Blood Urea Nitrogen 30 mg/dl (9-20); Calcium 9.1 mg/dl (8.4-10.2); Carbon Dioxide 17 mmol/L (22-30); Chloride 108 mmol/L (98-107); Estimated Creatinine Clearance 63 ml/min; Glucose 122 mg/dl (70-99); Magnesium 2.2 mg/dl (1.6-2.3); Potassium 4.2 mmol/L (3.5-5.1); Sodium 136 mmol/L (135-145); eGFR 56.93
--- NOTE | 2023-12-12 08:52 | PN.CDI ---
CDI
- -
CDI:
Physician Documentation Request
Admit Date: 12/10/23 19:57
Dear Doctor Dell,
Clinical Indicators:
Patient admitted with likely crystalline arthropathy.
09/2022 Echo: EF 55-60%
10/2022 Discharge Summary includes diagnosis of Chronic diastolic congestive heart failure.
12/11 PN 'CHF appears euvolemic'
Please provide further specificity regarding the most likely type and acuity of CHF you are evaluating, treating or monitoring.
Chronic HFpEF
Other, please specify
Unable to determine
Use of terms such as suspected, likely, concern for, or probable (associated with a specific diagnosis that is being evaluated, monitored, or treated as if it exists) are acceptable and can be coded in the inpatient setting, when documented at the
time of discharge.
Thank you,
HERMAN Iverson RN
CDI Specialist
available via tiger text
Please use your independent medical judgment in providing your response.
[2023-12-12 11:47] VITALS: BP 159/75
--- NOTE | 2023-12-12 13:10 | W.PN.ID1 ---
Date of Service
Date of Service: December 12, 2023
Today's Communication
- remains well off of antibiotics
- continue steroids
- follow up with PCP
Assessment / Plan
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
- body fluid suggestive of crystalline arthritis, gram stain no organisms, uric acid elevated
- remains well off of antibiotics
- continue steroids
- lower extremity swelling per primary team
- follow up with PCP
Chief Complaint
-: Leukocytosis
Subjective / Review of Systems
remains afebrile
bp stable
with minimal leukocytosis
cr further improved
joint fluid no growth
Vital Signs / Physical Exam
Vital Signs
Vital Signs
Temp Pulse Resp BP Pulse Ox
97.9 F 81 14 159/75 97
12/12/23 11:47 12/12/23 11:47 12/12/23 11:47 12/12/23 11:47 12/12/23 11:47
Physical Exam
Constitutional: No Acute Distress
Cardiovascular: Regular Rate and S1/S2; Negative Murmur or Rub
Pulmonary: Clear and Symmetric; Negative Wheezes or Rales
Gastrointestinal: Soft, Non Tender, Non Distended and Normal Bowel Sounds
Extremities: Other (mild swelling of the L wrist - has compression, much less tender; 2+ edema of the lower extremities)
Skin: Warm and Dry; Negative Rash or Jaundice
Objective Data
Lab Data
Lab Results
12/12/23 06:21
12/12/23 06:21
ESR 50 mm/hour (0-20) H 12/10/23 13:42
Estimated Creat Clear 63 ml/min 12/12/23 06:21
Lactic Acid 0.8 mmol/L (0.7-2.0) 12/10/23 17:38
Total Bilirubin 1.3 mg/dl (0.2-1.3) 12/10/23 13:42
AST 25 U/L (17-59) 12/10/23 13:42
ALT 16 U/L (0-50) 12/10/23 13:42
Alkaline Phosphatase 65 U/L (38-126) 12/10/23 13:42
C-Reactive Protein 59.20 mg/L (0.0-10.00) H 12/10/23 13:42
Most recent labs reviewed.
Micro Results:
12/10/23 13:28 Body Fluid Culture - Preliminary
Joint Fluid No Growth After 18-24 Hours
Gram Stain - Preliminary
--- NOTE | 2023-12-12 14:35 | CM ---
Patient for d/c home.
PT recommending home care.
Patient requesting [facility], had them in the past.
Plan: home wit [facility]
--- NOTE | 2023-12-12 15:20 | VNURNOTE ---
Received request for VN referral. Call placed to patient's hospital room- no answer. Call placed to patient's contact number listed- no answer. Patient is discharged today and has had VN in the past. Referral placed in [facility].
--- NOTE | 2023-12-12 15:31 | W.DCSUMMARY ---
Discharge Summary
Discharge Data
Date of Admission: 12/10/23
Date of Discharge: 12/12/23
-
Pending Results: Yes
Additional Pending Results:
official culture results
Hospital Course
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
any trauma at onset of symptoms.� Reported history of coughing sore throat and some tongue swelling for the past week.� Also endorsed swollen lymph nodes same duration tender.� Denied history of gout but also reported that he recently took care of
his who had an acute gout flare for the past few weeks- endorsed that he and his have similar diet.� Endorsed drinking vodka on weekends 2 shots in a sitting.� ED eval was significant for mild leukocytosis 12.4 mild inflammatory marker
elevations CRP ESR.� Arthrocentesis wrist effusion yielded white count 70,600.� Mild tachycardia 90s attributable to pain, with leukocytosis however concerning for possible sepsis.� No hypotension or lactic acidosis noted.� Uric acid noted elevated
at 9.4.� Wrist and elbow x-rays were negative for acute abnormalities except for effusion at elbow. Possible septic arthritis versus gout flare (more likely gout flare). 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
empiric abx since discontinued. Prednisone 15 mg twice a day was started for likely gout flare, lowest dose and twice a day given concern possible interaction with Mestinon. Swollen lymph nodes since resolved. Thyroid nodules were found on US.
Cervical ultrasound appreciated 2 thyroid nodules, follow-up surveillance recommended 1 year. TSH wnl. Mild Swollen tongue no respiratory issues since resolved. B12 wnl. Iron studies noted mild iron deficiency possible anemia of chronic disease
(oral iron supplementation started). Swollen tongue possibly due to nutritional deficiencies, multivitamin was started. Paroxysmal A-fib, Eliquis was briefly held for possible orthopedic intervention, resumed on discharge. Chronic HFpEF, patient
was euvolemic during stay. Torsemide was briefly held due to concern gout flare, resumed on discharge. Medically stable, patient was discharged home with home services and outpatient follow up recommendations.
Discharge Plan
-
Patient Disposition: Home with Home Care
Discharge Diagnosis/Procedures: Gout vs pseudogout Flare, Mild Iron Deficiency, Anemia of Chronic disease, Chronic Kidney disease stage III, Lambert-Eaton Syndrome, Paroxysmal atrial fibrillation, Two Thyroid Nodules
Condition: Fair
Diet: 2 Gram Sodium
Activity: As tolerated
Driving Restrictions: Not until seen by your Dr
Bathing Restrictions: None
Blood Work: Please repeat cbc and BMP with primary care provider in 1 week of discharge.
Please repeat iron studies with primary care provider in 1 month of discharge
Others Tests: Please repeat Thyroid Ultrasound with primary care provider in 1 year of discharge to continue follow up of Thyroid Nodules
Other Services: VN, PT and OT
Specialty Instructions: Weigh Daily- Call MD for wt gain/loss 3 lbs overnight/5 lbs in 1 week
Activity Restrictions/Additional Instructions:
Please follow up with rheumatology and primary care provider in 1 week of discharge, orthopedic in 2 weeks of discharge, and neurology in 2-4 weeks of discharge.
Iron supplementation has been prescribed for mild iron deficiency. This is available over the counter. Multivitamin has been prescribed for nutrition support, this i also available over the counter.
Protonix has been prescribed for GI stress ulcer prophylaxis while on steroids such as prednisone.
Prednisone has been prescribed for gout vs pseudogout flare. Please follow up with Rheumatology or you Primary care provider within 1 week of discharge for further steroid taper recommendations/prescription.
Please continue taking mestinon for Lambert-Eaton syndrome as recommended by neurology. A refill prescription has been sent to your pharmacy.
Oxycodone has been prescribed as needed for severe pain, 5 day supply.
Please take medications as prescribed/recommended and follow up with your primary care provider and/or other healthcare provider involved in your care for refills and/or further adjustments to your medication regimen as necessary.
Instructions: Lifestyle Changes to Manage Gout, Gout (DC), Calcium Pyrophosphate Deposition DiseaseDischarge Instructions (DC)
Referrals:
Demar Mack MD [Active] - in two to four weeks
Lalito Alaniz MD [Active] - in one week
Alan Youssef MD [Active] - in two weeks
Peggy Rowell CRNP [Family Provider] - in one week
Prescriptions:
New
prednisone 5 mg Tablet
15 mg PO BID 7 Days Qty: 42 0RF
pantoprazole 40 mg Tablet,Delayed Release (Dr/Ec)
40 mg PO DAILY 30 Days Qty: 30 0RF
Rx Instructions:
ok to discontinue when off steroids/prednisone
ferrous sulfate [FeroSul] 325 mg (65 mg iron) Tablet
325 mg PO DAILY 30 Days Qty: 30 0RF
multivitamin with folic acid [Tab-A-Mary] 400 mcg Tablet
1 tab PO DAILY 30 Days Qty: 30 0RF
oxycodone 5 mg tablet
5 mg PO BID PRN (Reason: Pain) 5 Days Qty: 10 0RF
Continued
torsemide 20 mg Tablet
40 mg PO DAILY
magnesium 250 mg Tablet
250 mg PO DAILY Qty: 0
acetaminophen 325 mg tablet
650 mg PO Q4HPRN PRN (Reason: mild pain/ fever>100.5F)
potassium 99 mg Tablet
99 mg PO DAILY
folic acid 1 mg Tablet
1 mg PO DAILY
Eliquis 2.5 mg tablet
2.5 mg PO BID
pyridostigmine bromide [Mestinon] 60 mg Tablet
120 mg PO QID 30 Days Qty: 240 0RF
Discharge Orders:
Discharge Patient (As Directed); Ordered 12/12/23
Ordered By: Primo Sharpe
Discharge Date and Time
Discharge Date/Time: 12/12/23 16:24
== END 2023-12-12 16:24 | disposition home health service (06) | DRG 554 ==
LOC: 4 WEST ACU 19:57
PROVIDERS: Physician Assistant; ADMITTING PHYSICIAN Internal Medicine; CONSULT PHYSICIAN Student in an Organized Health Care Education/Training Program; EMERGENCY PHYSICIAN Emergency Medicine; FAMILY PHYSICIAN Nurse Practitioner Family; OTHER PHYSICIAN Orthopaedic Surgery
DX: M10.9 Gout, unspecified (principal); G70.80 Lambert-Eaton syndrome, unspecified; M00.9 Pyogenic arthritis, unspecified; I13.0 Hypertensive heart and chronic kidney disease with heart failure and stage 1 through stage 4 chronic kidney disease, or unspecified chronic kidney disease; I50.32 Chronic diastolic (congestive) heart failure; I48.0 Paroxysmal atrial fibrillation; N18.30 Chronic kidney disease, stage 3 unspecified; Z87.891 Personal history of nicotine dependence; J45.909 Unspecified asthma, uncomplicated; D63.8 Anemia in other chronic diseases classified elsewhere; E04.2 Nontoxic multinodular goiter
CPT/HCPCS: 20605; 73080; 73110; 76536; 80048; 80053; 82607; 82728; 83540; 83550; 83605; 83735; 84443; 84550; 85025; 85027; 85652; 86140; 86618; 87015; 87070; 87205; 89051; 96374; 96375; 97116; 97162; 97166; 99285

== ENCOUNTER → 2024-06-18 10:58 | Outpatient (REF) | payer MEDICARE, SELFPAY | LOC: HWRCS 10:58 | PROVIDERS: ATTENDING PHYSICIAN Internal Medicine Cardiovascular Disease; FAMILY PHYSICIAN Nurse Practitioner Family | DX: I50.32 Chronic diastolic (congestive) heart failure (principal) | CPT/HCPCS: 93306 ==

== ENCOUNTER 2024-10-15 21:27 | Observation (INO) | payer MEDICARE, OTHER, SELFPAY ==
[2024-10-15] VITALS (7 sets, daily range): BP systolic 151–168; BP diastolic 78–90; BMI 35.6
[2024-10-15 17:38] LABS: % Basophils 0.3 % (0-2); % Eosinophils 0.4 % (0-6); % Immature Granulocytes 0.3 % (0-0.5); % Lymphocytes 11.9 % (20.5-51.1); % Monocytes 7.4 % (1.7-9.3); % Neutrophils 79.7 % (42.2-75.2); Absolute Lymphocytes 0.9 10^3/uL (1.2-3.4); Absolute Monocytes 0.6 10^3/uL (0.1-0.6); Absolute Neutrophils 6.1 10^3/uL (1.4-6.5); Hematocrit 31.3 % (39.0-52.0); Hemoglobin 10.7 g/dL (13.0-18.0); Mean Corp Hgb Conc. 34.2 g/dL (33.0-37.0); Mean Corpuscular Hgb 31.5 pg (27.0-31.0); Mean Corpuscular Volume 92.1 fL (80.0-94.0); Nucleated Red Blood Cells % 0 % (-); Platelet Count 211 10^3/uL (130-400); Red Cell Dist. Width 15.2 % (11.5-14.5); White Blood Cell Count 7.7 10^3/uL (4.8-10.8)
[2024-10-15 17:55] LABS: ALT (SGPT) 23 U/L (0-50); AST (SGOT) 42 U/L (17-59); Albumin 4.3 g/dl (3.5-5.0); Alkaline Phosphatase 50 U/L (38-126); Blood Urea Nitrogen 28 mg/dl (9-20); Calcium 8.9 mg/dl (8.4-10.2); Carbon Dioxide 20 mmol/L (22-30); Chloride 103 mmol/L (98-107); Glucose 94 mg/dl (70-99); Potassium 4.1 mmol/L (3.5-5.1); Sodium 138 mmol/L (135-145); Total Bilirubin 0.8 mg/dl (0.2-1.3); eGFR 47.65
--- NOTE | 2024-10-15 18:28 | ED.GENMED ---
History of Present Illness
<Stella Singh PA-C - Last Filed: 10/21/24 18:58>
General
Chief Complaint: Head Injury
Source: patient
Exam Limitations: none
Time Seen by Provider: 10/15/24 16:59
Nursing documentation reviewed up to this point in time: agreed with
History of Present Illness
History of Present Illness:
79-year-old male with a history of CKD, paroxysmal A-fib on Eliquis, Lambert Eaton syndrome
Had a mechanical trip and fall forward last night around midnight when his right leg gave out on him and he landed on his right knee and then struck his head on the ground. He denies loss of consciousness but it took him about 30 minutes to get
himself up. He had a wound to his forehead but did not seek treatment. Today when his family member came to check on him for Ifrah they noticed a wound on his head provide blood and bruising under his left eye and patient was complaining of
mild headache, mild neck pain and right lower leg pain. He does take his Eliquis he says but missed today's dose. His right leg is a lot smaller swollen than his left but he does have chronic lymphedema. Patient was able to weight-bear. He is
not having any numbness tingling or weakness. He does not feel confused and his family member did not believe he was altered. He has not had severe worst headache of life, vision changes, chest pain or shortness of breath.
Past History
<Stella Singh PA-C - Last Filed: 10/21/24 18:58>
Past History
ED Past Medical History: Arrthythmia (Atrial fibrillation), Asthma, CHF, GERD, HTN and Other (Melanoma, chronic kidney disease, admission for pneumonia November 2017, Lambert-Eaton myasthenic syndrome diagnosed 09/2022)
ED Past Surgical History: Other (Agree with documented past surgical history)
Social History
Tobacco: Former smoker
Alcohol: Daily
Drug: None
Personal:
Living: with family
Employment: Retired
Family History
Family History: Other (Reviewed and noncontributory)
Review of Systems
<KALLIE Edgar Last Filed: 10/21/24 18:58>
Review of Systems
Allergies reviewed?: Yes
All Other Systems: Not applicable
Phy Exam
<KALLIE Edgar Last Filed: 10/21/24 18:58>
Physical Exam
Physical Exam:
GENERAL: Alert , in no apparent distress
HEAD: Linear laceration vertically oriented on the top of the forehead approximately 6 cm with a surrounding hematoma
Face: Ecchymosis under left eye, fully able to open his eye and move it without difficulty
No inferior orbital tenderness
NECK: No midline tenderness, placed in a c-collar
EYE: pupils equal and reactive, EOMs intact.
ENT: o/p clr, mmm. no hemotympanum
CARDIAC: Regular rate and rhythm, no edema
LUNGS: Clear breath sounds bilaterally, no acute respiratory distress, no wheezes/rales/rhonchi
ABDOMEN: Soft, without focal tenderness, no r/g, no cvat
NEUROLOGICAL: Alert and oriented, no focal neuro deficits, CN intact, 5/5 strength, sensation intact
SKIN: Warm and dry, flakey
MUSCULOSKELETAL: Significant lower extremity edema, lymphedema, right much greater than left, normal pulses, diffuse erythema circumferential without warmth
PSYCH: Normal and appropriate interaction.
Course
<KALLIE Edgar Last Filed: 10/21/24 18:58>
Orders/Labs/Results
Orders:
Orders
10/15/24 Breakfast
Sodium, 2 Gram
At Your Request: Limited Participation
Does patient need a safe tray?: No
10/15/24 14:27
CT Cervical Spine W/o Iv Contr Urgent
Comment:
Reason For Exam: fall last night, frontal head strike, neck pain
CT Head W/o Iv Contrast Urgent
Comment:
Reason For Exam: Fall last night, frontal head strike
10/15/24 17:19
Cardiac Monitoring- Treatment ONCE
CR Knee- Right 4 Or More View* Urgent
Comment:
Reason For Exam: swollen knee, fall
CR Leg Tibia/fibula Right 2 Vw Urgent
Comment:
Reason For Exam: leg pain fall
Venous Doppler Lwr Ext Rt [US Perip Venous LOWER Ext RT] Urgent
Comment:
Reason For Exam: leg pain sswelling
10/15/24 17:25
Complete Blood Count/With Diff Urgent
Comprehensive Metabolic Panel Urgent
10/15/24 17:43
CT Neck Angio W/wo Iv Contrast Urgent
Comment:
Reason For Exam: truama, c2 fracture
10/15/24 20:56
Acetaminophen [Tylenol] 1,000 mg PO NOW STA
10/15/24 21:00
Admit/Transfer Patient As Directed
Co-Sign Provider:
Level of Care: Observation services
Assign to:: Medical/Surgical
Physician / Group: Jasen
Diagnosis: C2 Fracture
Code Status As Directed
Resuscitation Status: Full Code
PRN Pain Medication Management As Directed
May give lesser potent ordered pain med per pt: Yes
preference::
Protocol:: Medication orders for pain may be administered in a
manner that supports deferring to patient preference
when the pt is:
- Requesting an ordered lesser potent pain medication.
Least to most potent pain medications are defined
as: acetaminophen < NSAID < tramadol < opioids
(morphine, oxycodone, hydromorphone).
- Requesting a lesser dose of the same medication IF
ORDERED.
- Requesting a less intrusive route of administration
if both routes are prescribed by the provider (PO <
IV).
10/15/24 21:11
Ipratropium/Albuterol Sulfate [Duoneb] 3 ml INH R NOW ONE
10/15/24 21:57
Neurosurgery Consult Routine
Consulting Provider: Malka Franco
Was physician already notified: Yes
Activity As Directed
Activity Level: Out of Bed- Ad Lauren
With Assistance
Braces/Immobilizers As Directed
Type of Brace/Immobilizer: Cervical Collar- [place] J
I&O [Intake/ Output] As Directed
Frequency: q12h
Orthostatic Vital Signs As Directed
Orthostatic VS Frequency: BID
Vital Signs As Directed
Frequency: Per unit guidelines
Weight As Directed
Frequency: Daily
Ot Eval And Treat Routine
Treatment: Possible lymphedema treatment
Pt Eval And Treat Routine
Treatment: Possible lymphedema treatment
Activity Level: Out of Bed-Early Mobility
10/16/24 07:59
Basic Metabolic Panel IN AM
10/16/24 08:00
Apixaban [Eliquis] 5 mg PO BID
Torsemide [Demadex] 40 mg PO DAILY
Abnormal Lab Results
10/15/24
17:25
RBC 3.40 L 10^6/uL
(4.70-6.10)
Hgb 10.7 L g/dL
(13.0-18.0)
Hct 31.3 L %
(39.0-52.0)
MCH 31.5 H pg
(27.0-31.0)
RDW 15.2 H %
(11.5-14.5)
Absolute Lymphs (auto) 0.9 L 10^3/uL
(1.2-3.4)
Neutrophils % 79.7 H %
(42.2-75.2)
Lymphocytes % 11.9 L %
(20.5-51.1)
Carbon Dioxide 20 L mmol/L
(22-30)
BUN 28 H mg/dl
(9-20)
Creatinine 1.5 H mg/dL
(0.7-1.3)
10/15/24 17:25
10/15/24 17:25
Vital Signs
Initial and Last Documented VS:
Initial Vital Signs
Temp Pulse Resp BP Pulse Ox
36.7 C 76 18 152/78 97
10/15/24 14:23 10/15/24 14:23 10/15/24 14:23 10/15/24 14:23 10/15/24 14:23
Last Documented Vital Signs
Temp Pulse Resp BP Pulse Ox
36.7 C 93 22 162/84 97
10/16/24 15:18 10/16/24 15:18 10/16/24 15:18 10/16/24 15:18 10/16/24 15:18
<Gomez Castorena MD - Last Filed: 10/15/24 18:46>
Orders/Labs/Results
Orders:
Orders
10/15/24 Breakfast
Sodium, 2 Gram
At Your Request: Limited Participation
Does patient need a safe tray?: No
10/15/24 14:27
CT Cervical Spine W/o Iv Contr Urgent
Comment:
Reason For Exam: fall last night, frontal head strike, neck pain
CT Head W/o Iv Contrast Urgent
Comment:
Reason For Exam: Fall last night, frontal head strike
10/15/24 17:19
Cardiac Monitoring- Treatment ONCE
CR Knee- Right 4 Or More View* Urgent
Comment:
Reason For Exam: swollen knee, fall
CR Leg Tibia/fibula Right 2 Vw Urgent
Comment:
Reason For Exam: leg pain fall
Venous Doppler Lwr Ext Rt [US Periph Venous LOWER Ext RT] Urgent
Comment:
Reason For Exam: leg pain sswelling
10/15/24 17:25
Complete Blood Count/With Diff Urgent
Comprehensive Metabolic Panel Urgent
10/15/24 17:43
CT Neck Angio W/wo Iv Contrast Urgent
Comment:
Reason For Exam: truama, c2 fracture
10/15/24 20:56
Acetaminophen [Tylenol] 1,000 mg PO NOW STA
10/15/24 21:00
Admit/Transfer Patient As Directed
Co-Sign Provider:
Level of Care: Observation services
Assign to:: Medical/Surgical
Physician / Group: Jasen
Diagnosis: C2 Fracture
Code Status As Directed
Resuscitation Status: Full Code
PRN Pain Medication Management As Directed
May give lesser potent ordered pain med per pt: Yes
preference::
Protocol:: Medication orders for pain may be administered in a
manner that supports deferring to patient preference
when the pt is:
- Requesting an ordered lesser potent pain medication.
Least to most potent pain medications are defined
as: acetaminophen < NSAID < tramadol < opioids
(morphine, oxycodone, hydromorphone).
- Requesting a lesser dose of the same medication IF
ORDERED.
- Requesting a less intrusive route of administration
if both routes are prescribed by the provider (PO <
IV).
10/15/24 21:11
Ipratropium/Albuterol Sulfate [Duoneb] 3 ml INH R NOW ONE
10/15/24 21:57
Neurosurgery Consult Routine
Consulting Provider: Malka Franco
Was physician already notified: Yes
Activity As Directed
Activity Level: Out of Bed- Ad Lauren
With Assistance
Braces/Immobilizers As Directed
Type of Brace/Immobilizer: Cervical Collar- [place] J
I&O [Intake/ Output] As Directed
Frequency: q12h
Orthostatic Vital Signs As Directed
Orthostatic VS Frequency: BID
Vital Signs As Directed
Frequency: Per unit guidelines
Weight As Directed
Frequency: Daily
Ot Eval And Treat Routine
Treatment: Possible lymphedema treatment
Pt Eval And Treat Routine
Treatment: Possible lymphedema treatment
Activity Level: Out of Bed-Early Mobility
10/16/24 07:59
Basic Metabolic Panel IN AM
10/16/24 08:00
Apixaban [Eliquis] 5 mg PO BID
Torsemide [Demadex] 40 mg PO DAILY
Abnormal Lab Results
10/15/24
17:25
RBC 3.40 L 10^6/uL
(4.70-6.10)
Hgb 10.7 L g/dL
(13.0-18.0)
Hct 31.3 L %
(39.0-52.0)
MCH 31.5 H pg
(27.0-31.0)
RDW 15.2 H %
(11.5-14.5)
Absolute Lymphs (auto) 0.9 L 10^3/uL
(1.2-3.4)
Neutrophils % 79.7 H %
(42.2-75.2)
Lymphocytes % 11.9 L %
(20.5-51.1)
Carbon Dioxide 20 L mmol/L
(22-30)
BUN 28 H mg/dl
(9-20)
Creatinine 1.5 H mg/dL
(0.7-1.3)
10/15/24 17:25
10/15/24 17:25
Vital Signs
Initial and Last Documented VS:
Initial Vital Signs
Temp Pulse Resp BP Pulse Ox
36.7 C 76 18 152/78 97
10/15/24 14:23 10/15/24 14:23 10/15/24 14:23 10/15/24 14:23 10/15/24 14:23
Last Documented Vital Signs
Temp Pulse Resp BP Pulse Ox
36.7 C 93 22 162/84 97
10/16/24 15:18 10/16/24 15:18 10/16/24 15:18 10/16/24 15:18 10/16/24 15:18
<Stella Snigh PA-C - Last Filed: 10/21/24 18:58>
MDM/Problems Addressed
Differential Diagnosis Includes:
head injury, ICH, subdural, cervical fracture, facial fracture, dvt/pe, knee fracture, contusion
MDM/Problems Addressed:
leslie ferguson 79 y/o M
afib on eliquis, mechanical fall forward last night hit head, no LOC, on ground 30 minutes;
head laceration and hematoma
neuro intact
mild neck pain
ct head neg
ct neck shows:
IMPRESSION:
There is a linear fracture through the right C2 lateral mass which extends through the transverse foramen. Recommend dedicated CTA neck 2020 for possible associated vascular injury.
There is a lucency extending through the posterior aspect of the left inferior articular process of C2, suspicious for minimally displaced fracture.
Multilevel severe degenerative changes of the cervical spine with prominent osteophyte extending from C4 through T1.
D/W DR. franco from [facility] [place]
she recommended CTA to r/o vascular injury
the CTA was neg
cr is baseline
so i reached back out to her and she said that he could go home with c collar for 12 weeks hard collar
and f/u in the office
pt would like to go home but uses cane at baseline and i suspect will have hard time on feet so we will check gait prior to d/c home
2000- pt stood up to walk to bathroom and is wobbly enough to rquire PT eval
admit to hospitalist;
<Stella Singh PA-C - Last Filed: 10/21/24 18:58>
*Critical Care Note
Total Time (30-74mins, 75-104mins- exclusive of procedures): Not Applicable
ED Attending Note
<Stella Singh PA-C - Last Filed: 10/21/24 18:58>
-
Portions of this chart may have been created with voice recognition software.� Occasional wrong word or��sound alike� substitutions may have occurred due to the inherent limitations of voice recognition software.
<Gomez Castorena MD - Last Filed: 10/15/24 18:46>
ED Attending Note
Patient seen and examined by attending physician: Yes
I performed the substantive portion of visit, reviewed & personally made and approve the management plan that is documented in note by myself or RBOERT.: Yes
ED Attending Note:
I have seen and evaluated the patient with a [id number] encounter. I have spoken to the [PA] and involved in the medical history, the physical exam, medical decision making.
Evaluation and management service: agree unless noted differently below.
Results interpretation: agree unless noted differently below.
79-year-old man presenting to the emergency department after a fall. He fell hitting his face. He is on a blood thinner. He did not lose consciousness. He is having some mild neck pain. On exam patient is resting comfortably with cervical
collar in place. He is having cervical spine tenderness. He does have some left-sided periorbital ecchymoses and edema but extraocular muscles are intact as well as vision is grossly intact. No gross motor or sensory deficits. He does have a
laceration to his forehead. Concern for traumatic intracranial injury or cervical spine fracture. CT scan of the neck obtained which does show C2 fracture. Will discuss with neurosurgery here for further management.
Discharge Plan
Departure
Patient Disposition: Admit
Date of Disposition: 10/15/24
Time of Disposition: 19:58
Admit to: Med/Surg
Presentation/result/management discussed w/ accepting MD/DO: Hospitalist
Condition: Fair
Covid-19: Not Applicable
Discharge Problem:
Fall, Head injury, Laceration of face, C2 cervical fracture
Interventions
Interventions:
*Risk Screen - Suicide Last Done: 10/15/24 17:19
*General Assessment Last Done: 10/15/24 17:19
*Neglect/Abuse Screening Last Done: 10/15/24 17:19
ED- Fall Risk Assessment Last Done: 10/15/24 17:19
*ED COVID-19 Vaccine History Last Done: 10/15/24 17:19
*Nursing Disposition Last Done: 10/15/24 21:54
ED- Neurological Assessment Last Done: 10/15/24 15:35
ED-Skin Assessment Last Done: 10/15/24 15:35
Discharge Date and Time
Discharge Date/Time: 10/15/24 21:54
--- NOTE | 2024-10-15 20:03 | HPS.HSE ---
Family Physician
-
Family Physician: TRUPTI Collins
Chief Complaint
-
Fall with Head Injury
History of Present Illness
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 Patient sustained a fall last night and struck his head on the ground. Today his family came to visit him for
[place] and noticed the head wound and bruising under his left eye. Work-up in the ED revealed a C2 fracture. ED discussed with neurosurgery who recommended cervical collar for 12 weeks and follow-up in office. However patient is unstable on his
feet and unable to ambulate unassisted.
Medical History
Past Medical History
Past Medical History: Reports Other
Additional Past Medical History:
Chronic HFpEF
Paroxysmal Atrial Fibrillation
CKD Stage IIIB
Lambert-Eaton Syndrome
Chronic Lower Extremity Lymphedema
GERD
Melanoma
Past Surgical History: Reports Other
Additional Past Surgical History:
Multiple Moh's
Lithotripsy
Cataracts
Social History
Tobacco: Non-smoker
Alcohol: Occasional
Drug: None
Living: Alone
Employment: Retired
Family History
Family History: Not pertinent (reviewed)
Allergies / Home Medications
Allergies reflects when Allergies were last updated in [employer].
Home Medications with original date entered in [employer]
Allergy/Medication List:
Allergies
Allergy/AdvReac Type Severity Reaction Status Date / Time
apple Allergy ITCHY MOUTH Verified 12/10/23 10:28
monosodium glutamate Allergy restless Verified 12/10/23 10:28
in bed
peach Allergy ITCHY MOUTH Verified 12/10/23 10:28
pollen extracts Allergy TRIGGERS Verified 12/10/23 10:28
ASTHMA
ragweed pollen Allergy TRIGGERS Verified 12/10/23 10:28
ASTHMA
Home Medications
magnesium 250 mg tablet 250 mg PO DAILY Supplement ##0 09/28/22
torsemide 20 mg tablet 40 mg PO DAILY Fluid retention/Swelling 09/28/22
folic acid 1 mg tablet 1 mg PO DAILY Supplement 12/10/23
potassium 99 mg tablet 99 mg PO DAILY Supplement 12/10/23
ferrous sulfate 325 mg (65 mg iron) tablet (FeroSul) 325 mg PO DAILY 30 days #30 tabs 12/12/23
multivitamin with folic acid 400 mcg tablet (Tab-A-Mary) 1 tab PO DAILY 30 days #30 tabs 12/12/23
apixaban 5 mg tablet (Eliquis) 5 mg PO BID 10/15/24
Review of Systems
-
A 12 point ROS was completed and negative except as noted: Yes
Constitutional: Denies Fever or Chills
Cardiac: Reports Other (Reports increased lower extremity for which he took extra Torsemide on Sunday and Sunday); Denies Chest Pain or Palpitations
Physical Exam
Vital Signs
Vital Signs
Temp Pulse Resp BP Pulse Ox
98.1 F 95 18 163/81 96
10/15/24 14:23 10/15/24 20:00 10/15/24 20:00 10/15/24 20:00 10/15/24 20:00
Physical Exam
General: Comfortable and Conversant
HEENT: Anicteric and Other (Laceration Forehead; Bruising under left eye)
Respiratory: Clear and Non Labored Respirations
GI: Soft and Non Tender
Rectal: Deferred by Provider
Musculoskeletal: No Clubbing, No Cyanosis and Other (+4 chronic lower extremity lymphedema)
Skin: Warm and Dry (Chronic skin changes of bilateral lower extremities due to lymphedema)
Neuro: Awake, Alert, Oriented and Nonfocal/grossly intact
Psych: Calm
Laboratory Results
-
10/15/24 17:25
10/15/24 17:25
Laboratory Results
Total Bilirubin 0.8 mg/dl (0.2-1.3) 10/15/24 17:25
AST 42 U/L (17-59) 10/15/24 17:25
ALT 23 U/L (0-50) 10/15/24 17:25
Alkaline Phosphatase 50 U/L (38-126) 10/15/24 17:25
Data Reviewed
-
Diagnostic Radiology: Report Reviewed by me
CT Scan: Report Reviewed by me
Ultrasound: Report Reviewed by me
Lab Data: Labs Reviewed by me
Impression/Plan
-
Mechanical Fall resulting in C2 Fracture
-ED reviewed with Neurosurgery who recommends cervical collar for immobilization for 12 weeks and follow-up in office
-Consult PT/OT
-Check Orthostatic Vital Signs
Paroxysmal Atrial Fibrillation
-Consult Cardiology to recommendation for continued anticoagulation given frequent falls
-Continue Eliquis for now
Chronic HFpEF
-Continue Torsemide
-Monitor Is&Os and Daily Weights
CKD Stage IIIB
-Creatinine at baseline
Lambert-Eaton Syndrome
-Patient reports no longer taking Mestinon
-Encouraged outpatient follow-up with Neurology
Chronic Lower Extremity Lymphedema
-Continue torsemide
DVT proph: Eliquis
Code Status: Full Code
--- NOTE | 2024-10-15 20:42 | W.PN.UPDATE ---
Update Note
Progress Note Update
Patient seen in conjunction with TRUPTI. I agree the findings on history and physical as well as the assessment and plan.
Briefly disease a 79-year-old male with past medical history of paroxysmal atrial fibrillation on anticoagulation, chronic diastolic heart failure, Lambert Eaton syndrome, ambulates with a walker who suffered a mechanical fall at home at midnight
yesterday and presents to the emergency department ostensibly for management of a laceration on his forehead. Patient denies any loss of consciousness. He reports that he was walking when he is right leg gave out from some weakness. He fell and
force hit the side of the wall with his head and then tumbled to the floor. He was able to get up by himself and denied any confusion, seizure-like activity, somnolence or dizziness. Came to the emergency department that was later due to continued
bleeding from the forehead. He has a laceration that required stitches.
He had extensive imaging for trauma evaluation. Ultimately the images show a a thin linear fracture of the C2 lateral mass and small displacement. No vascular compromise. He has no hematoma and no intracranial bleed. Case discussed with
Anuel. Patient does not need surgery. He is to be on collar immobilization for 12 weeks. He has lambert eaton
He is hemodynamically stable here with a blood pressure of 160/80 pulse of 86 regular satting 96% on room air. CBC is unremarkable and unchanged from prior. Similarly is electrolytes BUN/creatinine were unremarkable and similar to prior.
On exam he is alert and oriented x3, sitting comfortably with neck collar. No focal neurological deficits. Normal insight. Cardiac exam was regular. He has chronic LE swelling with R > L since the fall. Dopplers negative for DVT.
Assessment and plan
1. Fall and neck fracture - High risk of subsquent fall as he has lambert eaton, uses a walker and is no on a neck collar with chronic anticoagulation. Lives at home with extended family
- admit to med/surg
- eliquis has essentially been held for about 24 hours, can restart in am
- neck collar applied
- pain control
- PT evaluation
- case management.
2. AFIB - pAFIB on eliquis. H/O CVA. Reports this is first ever tumble like this but high risk for subsequent. Risk benefit of AC needs balancing.
- cardiology consult
3. CHF w./ chronic LE edema
- continue torsemide for now
- elevate legs
4. Katy Chacon - Pt not currently on pyridostigmine. Has not followed with neurology since stopping
- outpatient neurology follow up
Code status - full code
DVT PPX - SCDs
[2024-10-15] MEDS: TYLENOL 1000 MG PO (21:03)
[2024-10-15] MEDS: DUONEB 3 ML INH (21:31)
--- NOTE | 2024-10-15 23:29 | PTCARENOTE ---
Pt arrived to floor via stretcher from the ED. Pt AAOx3, able to stand, take few steps with RN and single point cane to bed. Pt denies any dizziness/ lightheadedness. HR irreg, Pt reports chronic Afib. POX 98% on RA. Head laceration with 15 sutures
with dressing intact, scant drainage noted. Pt reports head pain 8/10, [facility] notified for pain medication, awaiting orders. C2 fracture with Cervical collar in place, pt denies neck pain at this time. B/L LE chronic lymphedema noted with
red inflamed, cellulitic looking in nature. Skin flaking off, no open areas noted. +3 pitting RLE, +2 LLE. Palpable peripheral pulses present. Left AC int capped at this time. Left posterior thigh large scab, open to air. Left knee ecchymosis noted,
denies pain. Bed alarm in place for pt safety. Pt understands need to call for assistance when needed. Call phillips in reach.
[2024-10-15] MEDS: ROXICODONE 5 MG PO (23:43)
[2024-10-16] MEDS: TYLENOL 1000 MG PO ×2 (04:13→13:20)
[2024-10-16 07:00] VITALS: BP 155/86
[2024-10-16] MEDS: DEMADEX 40 MG PO (08:13)
[2024-10-16] MEDS: ROXICODONE 5 MG PO (08:17)
[2024-10-16] MEDS: ELIQUIS 5 MG PO (08:17)
[2024-10-16 08:40] VITALS: BP 170/80; BP 179/93; BP 181/86; O2SAT 98
[2024-10-16 08:48] LABS: Blood Urea Nitrogen 24 mg/dl (9-20); Calcium 9.1 mg/dl (8.4-10.2); Carbon Dioxide 22 mmol/L (22-30); Chloride 105 mmol/L (98-107); Estimated Creatinine Clearance 53 ml/min; Glucose 103 mg/dl (70-99); Sodium 138 mmol/L (135-145); eGFR 47.65
[2024-10-16 09:00] VITALS: BP 170/80; BP 179/93; BP 181/86; PULSE 104; PULSE 93; PULSE 95; O2SAT 98
[2024-10-16 09:08] VITALS: BMI 35.3
--- NOTE | 2024-10-16 11:04 | W.PN.UPDATE ---
Update Note
Progress Note Update
Cardiology consult will be dictated.
I had a discussion with the patient about anticoagulation and the increased risk of bleeding associated with falls/head trauma. We talked about potentially stopping it, evaluating for non OAT options (Watchman), or continuing. For now pt prefers to
continue his current anticoagulation and he will contact me if he has more falls/trauma.
Please call with questions.
--- NOTE | 2024-10-16 12:56 | W.PN.HOSP.TC ---
Today's Communication/Plan
-
Discahrge home. No changes in meds.
Assessment / Plan
Assessment / Plan
79 man with Mechanical Fall resulting in C2 Fracture. Patient requests to go home. Feels safe at home.
He has capacity to make the choice to be discharged home.
1. Fracture
-ED reviewed with Neurosurgery who recommended cervical collar for immobilization for 12 weeks and follow-up in office
-Consulted PT/OT
2. Paroxysmal Atrial Fibrillation
-Consulted Cardiology to recommendation for continued anticoagulation given frequent falls
-Continue Eliquis for now was the recommendation
3. Chronic HFpEF
-Continue Torsemide
4. CKD Stage IIIB
-Creatinine at baseline
5. Lambert-Eaton Syndrome
-Patient reports no longer taking Mestinon
-Encouraged outpatient follow-up with Neurology
6. Chronic Lower Extremity Lymphedema
-Continue torsemide
DVT proph: Eliquis
Code Status: Full Code
Anticipated Discharge: Today
Subjective/Interval History
-
Date of Service: October 16, 2024
patient requests to go home. He has capacity to make this choice. He states that he has 'plenty of help' at home.
Objective Data
-
Labs:
Laboratory Results
10/16/24
07:59
Sodium 138
Potassium 4.0
Chloride 105
Carbon Dioxide 22
BUN 24 H
Creatinine 1.5 H
Glucose 103 H
Calcium 9.1
Vital Signs:
Vital Signs
Temp Pulse Resp BP Pulse Ox
98.3 F 91 20 155/86 96
10/16/24 07:00 10/16/24 08:13 10/16/24 07:00 10/16/24 08:13 10/16/24 07:00
I&O
10/15/24 10/16/24 10/17/24
06:59 06:59 06:59
Intake Total 900 / 900
Output Total 500 / 500 650 / 650
Balance -500 / -500 250 / 250
Review of Systems
-
History Source: Patient
All other systems: Reviewed and negative
Physical Exam
-
General: Well Developed, Well Nourished, No Apparent Distress, Comfortable and Obese
HEENT: Nose Appears Normal and Ears Appear Normal
Respiratory: Clear to Auscultation
Cardiac: Regular Rhythm and S1/S2
GI: Soft and Nontender
Musculoskeletal: No Clubbing, No Cyanosis, Edema, Right Lower Extrem and Edema, Left Lower Extrem
Skin: Warm, Dry and Rash (LE )
Neuro: Awake, Alert, Oriented and AO x 3
Psych: Calm
Data Reviewed
-
Labs: Labs Reviewed by me
--- NOTE | 2024-10-16 13:15 | CM ---
CM met with Jelani at bedside.
He lives in a basement apartment where he has a full kitchen, bedroom, bathroom, shower with shower chair, grab bars. He has a RW at home that he has used occasionally.
At time of my visit, Jelani had cervical collar on, has been cleared for discharge to home with recommendation for home care services. Jelani has declined VN, stating he will rest and home and follow up with physician after discharge.
Plan: Discharge to home with no services. VN offered and declined.
PCP: Peggy Rowell
Pharmacy: [facility]
--- NOTE | 2024-10-16 14:24 | W.DS.TRANS ---
DC Summary - [employer]
-
Discharge Instructions:
Discharge Diagnosis/Procedures C2 Fracture
Diet As tolerated
Activity With assistance,As tolerated
Driving Restrictions Not until seen by your Dr
Bathing Restrictions None
Instructions:
Stand-Alone Forms:
Changes to Home Medications: No
Discharge Medications:
DC Medications w/original date entered in [employer]
magnesium 250 mg tablet 250 mg PO DAILY Supplement ##0 09/28/22
torsemide 20 mg tablet 40 mg PO DAILY Fluid retention/Swelling 09/28/22
folic acid 1 mg tablet 1 mg PO DAILY Supplement 12/10/23
potassium 99 mg tablet 99 mg PO DAILY Supplement 12/10/23
acetaminophen 500 mg tablet 500 mg PO TID 10/15/24
apixaban 5 mg tablet (Eliquis) 5 mg PO BID Blood Clot Prevention/Tx 10/15/24
ferrous sulfate 325 mg (65 mg iron) tablet (FeroSul) 325 mg PO DAILY Supplement 10/16/24
multivitamin with folic acid 400 mcg tablet (Tab-A-Mary) 1 tab PO DAILY Supplement 10/16/24
Home Medication Changes
Pending Results: No
Total time spent discharging patient (in min): 36
--- NOTE | 2024-10-16 14:26 | W.DCSUMMARY ---
Discharge Summary
Discharge Data
Date of Admission: 10/15/24
Date of Discharge: 10/16/24
Total time spent discharging patient (in min): 36
-
Pending Results: No
Hospital Course
Principal Diagnosis:
Mechanical Fall resulting in C2 Fracture.
Chronic Diagnoses:�
Chronic HFpEF
Paroxysmal Atrial Fibrillation
CKD Stage IIIB
Lambert-Eaton Syndrome
Chronic Lower Extremity Lymphedema
GERD
Melanoma
Multiple Moh's
Lithotripsy
Cataracts
Consultations:�
Neurosurgery (in ED)
Cardiology
Procedures:�
None
Clinical course:�
79 man with Mechanical Fall resulting in C2 Fracture. Patient felt well today and requested to go home. Feels safe at home.
He has capacity to make the choice to be discharged home.
1. Fracture
-ED reviewed with Neurosurgery, who recommended cervical collar for immobilization for 12 weeks and follow-up in office.
2. Paroxysmal Atrial Fibrillation
-Consulted Cardiology to recommendation for continued anticoagulation given frequent falls
-Continue Eliquis was the recommendation
3. Chronic HFpEF
-Continue Torsemide at current dose.
4. CKD Stage IIIB
-Creatinine is at baseline. No meds were adjusted during his stay
5. Lambert-Eaton Syndrome
-Patient reports no longer taking Mestinon
-Encouraged outpatient follow-up with Neurology
6. Chronic Lower Extremity Lymphedema - at baseline
-Continue torsemide at current dose
As for the rest of his medical problems, they were stable during his hospital stay.
Discharge Plan
-
Patient Disposition: Home (Routine Discharge)
Discharge Diagnosis/Procedures: C2 Fracture
Condition: Good
Diet: As tolerated
Activity: With assistance and As tolerated
Driving Restrictions: Not until seen by your Dr
Bathing Restrictions: None
Referrals:
Peggy Rowell CRNP [Family Provider] - in less than 1 week
Additional Discharge Medication Instructions: Please follow up with neurosurgery
Prescriptions:
Continued
torsemide 20 mg Tablet
40 mg PO DAILY
magnesium 250 mg Tablet
250 mg PO DAILY Qty: 0
potassium 99 mg Tablet
99 mg PO DAILY
folic acid 1 mg Tablet
1 mg PO DAILY
Eliquis 5 mg Tablet
5 mg PO BID
acetaminophen 500 mg Tablet
500 mg PO TID
ferrous sulfate [FeroSul] 325 mg (65 mg iron) tablet
325 mg PO DAILY
multivitamin with folic acid [Tab-A-Mary] 400 mcg tablet
1 tab PO DAILY
Discharge Orders:
Discharge Patient (As Directed); Ordered 10/16/24
Ordered By: Aj Andrews
Discharge Date and Time
Print Language: MALAYSIAN
--- NOTE | 2024-10-16 14:51 | CON.NS ---
Consultation
-
Date/Time Consultation Performed: 10/16/2024; 15:00
Performing Provider: Israel
Chief Complaint
History of Present Illness
This is a neurosurgical consultation on 79-year-old gentleman, with active medical issues including CHF, atrial fibrillation on anticoagulation, Lambert-Eaton syndrome, who presented after sustaining a fall 2 nights prior. With his family came to
visit him for [place], they noted head bruising and advised that he present to the emergency room. He had a workup in the emergency room, which demonstrated bilateral C2 fractures. Ultimately, it was discussed with the patient to follow-up as an
outpatient did not need any urgent surgical intervention. However, given his coexisting comorbidities, and that he was unstable on his feet with a hard cervical collar, he was admitted for PT evaluation.
Patient seen and examined at bedside. He denies any obvious neck pain. Hard cervical collar is in place. He denies any numbness, tingling, or weakness in the upper or lower extremities. He did get evaluated by physical therapy, and ultimately
was cleared for discharge home.
Review of Systems
-
10 point review of systems including constitutional, ENT, cardiovascular, respiratory, GI, , endocrinologic, hematologic, musculoskeletal, neurologic, was performed, was negative, except for stated in HPI.
Medication and Allergies
Home Medications
Home Medications
�Medication �Instructions �Recorded
magnesium 250 mg tablet 250 mg PO DAILY Supplement ##0 09/28/22
torsemide 20 mg tablet 40 mg PO DAILY Fluid 09/28/22
retention/Swelling
folic acid 1 mg tablet 1 mg PO DAILY Supplement 12/10/23
potassium 99 mg tablet 99 mg PO DAILY Supplement 12/10/23
acetaminophen 500 mg tablet 500 mg PO TID 10/15/24
apixaban 5 mg tablet (Eliquis) 5 mg PO BID Blood Clot 10/15/24
Prevention/Tx
ferrous sulfate 325 mg (65 mg 325 mg PO DAILY Supplement 10/16/24
iron) tablet (FeroSul)
multivitamin with folic acid 400 1 tab PO DAILY Supplement 10/16/24
mcg tablet (Tab-A-Mary)
Allergies
Allergies
Allergy/AdvReac Type Severity Reaction Status Date / Time
apple Allergy ITCHY MOUTH Verified 12/10/23 10:28
monosodium glutamate Allergy restless Verified 12/10/23 10:28
in bed
peach Allergy ITCHY MOUTH Verified 12/10/23 10:28
pollen extracts Allergy TRIGGERS Verified 12/10/23 10:28
ASTHMA
ragweed pollen Allergy TRIGGERS Verified 12/10/23 10:28
ASTHMA
Physical Exam
-
Exam:
Awake, alert, no apparent distress.
Cranial nerves II through XII are grossly intact.
Forehead laceration.
Left periorbital ecchymosis.
Motor: 5/5 strength bilaterally in upper extremities lower extremities.
Sensation to light touch is intact in upper and lower extremities.
Ambulates with a cane.
Neck is supple
Breathing nonlabored
Cardiac: Regular rate
Abdomen is soft
Extremities are warm
CT of the cervical spine, as well as CTA of the neck was reviewed. Images were personally viewed and interpreted by me. There is evidence of C2 fracture that extends to the transverse foramen on the right, without any obvious evidence of
dissection of vertebral artery.
Additionally, there is fracture line through the left facet joint, involving the left inferior articular process, likely consistent with fracture as well. Minimal displacement is seen.
Problems
-
Problem Status Onset Code
C2 cervical fracture S12.100A
Laceration of face S01.81XA
Head injury S09.90XA
Fall W19.XXXA
Assessment / Plan
-
This is a 79-year-old gentleman that presented after sustaining a mechanical fall, with resultant C2 fractures bilaterally.
No urgent neurosurgical intervention is recommended for the fracture.
Maintain hard collar immobilization x 10 to 12 weeks.
Patient is to follow-up in the office at that time, with AP/lateral x-rays of the cervical spine.
Patient given new prescription for better fitting collar with pads.
Patient given my business card.
[2024-10-16 15:18] VITALS: BP 162/84
== END 2024-10-16 15:36 | disposition home or self-care (01) ==
LOC: 4 EAST ACU 21:27
PROVIDERS: Physician Assistant; Physician Assistant Medical; ADMITTING PHYSICIAN Internal Medicine; ATTENDING PHYSICIAN Internal Medicine; CONSULT PHYSICIAN Neurological Surgery; EMERGENCY PHYSICIAN Student in an Organized Health Care Education/Training Program; FAMILY PHYSICIAN Nurse Practitioner Family; OTHER PHYSICIAN Internal Medicine Cardiovascular Disease
DX: S12.190A Other displaced fracture of second cervical vertebra, initial encounter for closed fracture (principal); S01.81XA Laceration without foreign body of other part of head, initial encounter; S00.83XA Contusion of other part of head, initial encounter; W01.198A Fall on same level from slipping, tripping and stumbling with subsequent striking against other object, initial encounter; Y93.01 Activity, walking, marching and hiking; Y92.003 Bedroom of unspecified non-institutional (private) residence as the place of occurrence of the external cause; N18.32 Chronic kidney disease, stage 3b; I13.0 Hypertensive heart and chronic kidney disease with heart failure and stage 1 through stage 4 chronic kidney disease, or unspecified chronic kidney disease; I48.0 Paroxysmal atrial fibrillation; M47.812 Spondylosis without myelopathy or radiculopathy, cervical region; G70.80 Lambert-Eaton syndrome, unspecified; I89.0 Lymphedema, not elsewhere classified; J44.89 Other specified chronic obstructive pulmonary disease; M79.661 Pain in right lower leg; R51.9 Headache, unspecified; I50.32 Chronic diastolic (congestive) heart failure; K21.9 Gastro-esophageal reflux disease without esophagitis; Z89.011 Acquired absence of right thumb; Z85.820 Personal history of malignant melanoma of skin; Z79.01 Long term (current) use of anticoagulants; Z87.891 Personal history of nicotine dependence; Z87.01 Personal history of pneumonia (recurrent); Z86.73 Personal history of transient ischemic attack (TIA), and cerebral infarction without residual deficits; Z60.2 Problems related to living alone
CPT/HCPCS: 70450; 70498; 72125; 73564; 73590; 80048; 80053; 85025; 87070; 93971; 97163; 97166; 99285; G0378; Q9967

== ENCOUNTER 2025-05-10 11:56 | Inpatient (IN) | payer MEDICARE, OTHER, SELFPAY ==
[2025-05-10] VITALS (13 sets, daily range): BP systolic 110–172; BP diastolic 67–88; BMI 35.7; BMI 34.0
[2025-05-10 07:03] LABS: Hematocrit 29.3 % (39.0-52.0); Hemoglobin 9.6 g/dL (13.0-18.0); Mean Corp Hgb Conc. 32.8 g/dL (33.0-37.0); Mean Corpuscular Volume 88.5 fL (80.0-94.0); Nucleated Red Blood Cells % 0 % (-); Platelet Count 158 10^3/uL (130-400); Red Cell Dist. Width 18.4 % (11.5-14.5)
[2025-05-10 07:32] LABS: Blood Urea Nitrogen 28 mg/dl (9-20); Calcium 8.2 mg/dl (8.4-10.2); Carbon Dioxide 21 mmol/L (22-30); Chloride 104 mmol/L (98-107); Estimated Creatinine Clearance 49 ml/min; Glucose 109 mg/dl (70-99); Sodium 137 mmol/L (135-145); eGFR 41.01
[2025-05-10 09:16] LABS: Blood Urea Nitrogen 27 mg/dl (9-20); Calcium 8.6 mg/dl (8.4-10.2); Carbon Dioxide 22 mmol/L (22-30); Chloride 105 mmol/L (98-107); Estimated Creatinine Clearance 52 ml/min; Glucose 109 mg/dl (70-99); Potassium 3.3 mmol/L (3.5-5.1); Sodium 138 mmol/L (135-145); eGFR 44.10
--- NOTE | 2025-05-10 10:10 | ED.GENMED ---
History of Present Illness
General
Chief Complaint: Skin Problem
Source: patient
Exam Limitations: none
Time Seen by Provider: 05/10/25 07:19
Nursing documentation reviewed up to this point in time: agreed with
History of Present Illness
History of Present Illness:
79 yo male with h/o Afib on Eliquis, CHF, HTN,GERD, bilateral LE lymphedema presents for worsening swelling and redness bilateral LE's. He changed the dressing on the RLE and in doing so, pulled off some of the skin causing bleeding. Denies SOB,
fever, chest pain, abdominal pain.
Past History
Past History
ED Past Medical History: Arrthythmia (Atrial fibrillation), Asthma, CHF, GERD, HTN and Other (Melanoma, chronic kidney disease, admission for pneumonia November 2017, Lambert-Eaton myasthenic syndrome diagnosed 09/2022)
ED Past Surgical History: Other (Agree with documented past surgical history)
Social History
Tobacco: Former smoker
Alcohol: Daily
Drug: None
Personal:
Living: with family
Employment: Retired
Family History
Family History: Other (Reviewed and noncontributory)
Phy Exam
Physical Exam
Physical Exam:
GENERAL: No acute distress. A&Ox3.
CONSTITUTIONAL: Afebrile.
EYES: clear, conjunctivae normal
ENMT: moist mucus membranes, Pharynx nl
RESPIRATORY: Regular respirations, nonlabored, lungs clear.
CARDIOVASCULAR: Regular rate and rhythm, no murmurs, no rubs.
GI: Soft, nontender, normal BS
MUSCULOSKELETAL: Moves with ease. Well perfused.
SKIN: Bilateral LE significant lymphedema
PSYCH: Normal mood and affect. Well kept, interactive and appropriate
NEUROLOGIC: Awake, alert and oriented. No focal neurological deficits
Course
Orders/Labs/Results
Orders:
Orders
05/10/25 06:56
Basic Metabolic Panel Urgent
Complete Blood Count/With Diff Urgent
05/10/25 08:06
US Periph Venous LOWER Ext Husam Urgent
Comment:
Reason For Exam: swelling, wounds
05/10/25 08:41
BNP [NT-proBNP] Urgent
Basic Metabolic Panel Urgent
05/10/25 Lunch
Cholesterol Lowering
Cholesterol Lowering: Sodium, 2 Gram
05/10/25 11:44
Potassium Chloride [KCl] 20 meq PO NOW STA
05/10/25 11:45
Admit/Transfer Patient As Directed
Co-Sign Provider:
Level of Care: Inpatient admission
Assign to:: Medical/Surgical
Physician / Group: Lavelle Gonzalez - hospitalists
Diagnosis: L>R LE cellulitis
Reason for Hospitalization: L>R LE cellulitis - IV abx
Expected length of stay greater than two midnights?: Yes
ELOS- Estimated Length of Stay in days: 2
I certify the patient meets the requirements for IP care: Yes
VANCOMYCIN Pharmacy to Dose [VANCOCIN Pharmacy to Dose] 1 each Pharmacy To Prepare [Call Pharmacy To Prepare] 0 ml IV PER PROTOCOL
05/10/25 11:47
Code Status As Directed
Resuscitation Status: Full Code
PRN Pain Medication Management As Directed
May give lesser potent ordered pain med per pt: Yes
preference::
Protocol:: Medication orders for pain may be administered in a
manner that supports deferring to patient preference
when the pt is:
- Requesting an ordered lesser potent pain medication.
Least to most potent pain medications are defined
as: acetaminophen < NSAID < tramadol < opioids
(morphine, oxycodone, hydromorphone).
- Requesting a lesser dose of the same medication IF
ORDERED.
- Requesting a less intrusive route of administration
if both routes are prescribed by the provider (PO <
IV).
05/10/25 11:49
Acetaminophen [Tylenol] 650 mg PO NOW STA
05/10/25 11:53
Vancomycin [Vancocin] 2,000 mg 0.9% Sodium Chloride 500 ml [Nss] 500 ml IV NOW
05/10/25 12:00
CeFAZolin 2 GRAM [Ancef] 2 grams in 10 ml IV Q8H
05/10/25 12:08
Blood Culture Q30M
DEYSI Source: Blood/Venous
Specimen Description:
MRSA Screen Routine
DEYSI Source: Nose
Specimen Description:
05/10/25 12:23
Blood Culture Q30M
DEYSI Source: Blood/Venous
Specimen Description:
05/10/25 14:36
Acetaminophen [Tylenol] 650 mg PO Q4HPRN PRN
Bisacodyl [Dulcolax] 10 mg RECTAL [id number] PRN
Docusate W/Senna [Senokot-S] 1 tablet PO BIDPRN PRN
Ondansetron Injectable [Zofran] 4 mg IV Q6HPRN PRN
Polyethylene Glycol Powder [Miralax] 17 grams PO DAILYPRN PRN
05/10/25 14:36
WOUND/OSTOMY CONSULT Routine
Reason for Consult: Lymphedema chronic wounds
Activity As Directed
Activity Level: As Tolerated
Vital Signs As Directed
Frequency: Per unit guidelines
Wound Care As Directed
Location of Wound: bilateral LE
Treatment of Wound: saline irrigation to wound, wet to dry. CASEY compression bilaterally
DX Deep Vein Thrombosis Video Routine
05/10/25 20:00
Heparin 5,000 units SC Q12
05/11/25 06:00
Basic Metabolic Panel IN AM
Complete Blood Count/No Diff IN AM
Vancomycin Random IN AM
05/11/25 08:00
Torsemide [Demadex] 40 mg PO DAILY
Abnormal Lab Results
05/10/25 05/10/25
06:56 08:41
RBC 3.31 L 10^6/uL
(4.70-6.10)
Hgb 9.6 L g/dL
(13.0-18.0)
Hct 29.3 L %
(39.0-52.0)
MCHC 32.8 L g/dL
(33.0-37.0)
RDW 18.4 H %
(11.5-14.5)
Absolute Lymphs (auto) 1.1 L 10^3/uL
(1.2-3.4)
Lymphocytes % 17.4 L %
(20.5-51.1)
Monocytes % 10.1 H %
(1.7-9.3)
Potassium 3.3 L mmol/L
(3.5-5.1)
Carbon Dioxide 21 L mmol/L
(22-30)
BUN 28 H mg/dl 27 H mg/dl
(9-20) (9-20)
Creatinine 1.7 H mg/dL 1.6 H mg/dL
(0.7-1.3) (0.7-1.3)
Glucose 109 H mg/dl 109 H mg/dl
(70-99) (70-99)
Calcium 8.2 L mg/dl
(8.4-10.2)
05/10/25 06:56
05/10/25 08:41
Vital Signs
Initial and Last Documented VS:
Initial Vital Signs
Temp Pulse Resp BP Pulse Ox
97.5 F 82 16 122/69 97
05/10/25 06:04 05/10/25 06:04 05/10/25 06:04 05/10/25 06:04 05/10/25 06:04
Last Documented Vital Signs
Temp Pulse Resp BP Pulse Ox
97 F 85 13 129/76 96
07/20/25 14:14 05/10/25 14:14 05/10/25 14:14 05/10/25 14:14 05/10/25 14:14
MDM/Problems Addressed
MDM/Problems Addressed:
79 yo male with h/o Afib on Eliquis, CHF, HTN,GERD, bilateral LE lymphedema presents for worsening swelling and redness bilateral LE's. He changed the dressing on the RLE and in doing so, pulled off some of the skin causing bleeding. Denies SOB,
fever, chest pain, abdominal pain.
Afebrile, NAD
US: NO DVT
*Pulse Oximetry
SaO2: 97
Oxygen Mode of Delivery: Room air
Patient hypoxic: not evaluated
*Critical Care Note
Total Time (30-74mins, 75-104mins- exclusive of procedures): Not Applicable
ED Attending Note
-
Portions of this chart may have been created with voice recognition software.� Occasional wrong word or��sound alike� substitutions may have occurred due to the inherent limitations of voice recognition software.
Discharge Plan
Departure
Patient Disposition: Admit
Date of Disposition: 05/10/25
Time of Disposition: 10:39
Admit to: Med/Surg
Presentation/result/management discussed w/ accepting MD/DO: Hospitalist
Condition: Fair
Discharge Problem:
Bilateral cellulitis of lower leg, Multiple open wounds of left lower extremity
Interventions
Interventions:
*Risk Screen - Suicide Last Done: 05/10/25 06:04
*General Assessment Last Done: 05/10/25 06:04
*Neglect/Abuse Screening Last Done: 05/10/25 06:04
*ED- Fall Risk Assessment Last Done: 05/10/25 06:38
*ED COVID-19 Vaccine History Last Done: 05/10/25 06:42
*Nursing Disposition Last Done: 05/10/25 14:14
ED-Skin Assessment Last Done: 05/10/25 08:21
Discharge Date and Time
Discharge Date/Time: 05/10/25 14:31
--- NOTE | 2025-05-10 11:36 | HPS.HSE ---
Family Physician
-
Family Physician: OREN Jimenez
Chief Complaint
-
Cellulitis, chills, bleeding chronic wound
History of Present Illness
79 y/o M, hx of Afib on Eliquis, CHF, HTN, B/L LE lymphedema presents to ER for worsening swelling and redness to bilateral LEs. He reports performing his own dressing changes and yesterday he unwrapped his dressings to reveal LLE bleeding from
chronic wound. He also noticed worsening redness. He felt chills but no fever. No other complaints.
Medical History
Past Medical History
Past Medical History: Reports Other (Arrthythmia (Atrial fibrillation), Asthma, CHF, GERD, HTN and Other (Melanoma, chronic kidney disease, admission for pneumonia November 2017, Lambert-Eaton myasthenic syndrome diagnosed 09/2022))
Past Surgical History: Reports None
Social History
Tobacco: Former Smoker
Alcohol: Occasional
Drug: None
Personal:
Employment: Retired
Family History
Family History: Not pertinent
Allergies / Home Medications
Allergies reflects when Allergies were last updated in [facility].
Home Medications with original date entered in [facility]
Allergy/Medication List:
Allergies
Allergy/AdvReac Type Severity Reaction Status Date / Time
apple Allergy ITCHY MOUTH Verified 12/10/23 10:28
monosodium glutamate Allergy restless Verified 12/10/23 10:28
in bed
peach Allergy ITCHY MOUTH Verified 12/10/23 10:28
pollen extracts Allergy TRIGGERS Verified 12/10/23 10:28
ASTHMA
ragweed pollen Allergy TRIGGERS Verified 12/10/23 10:28
ASTHMA
Home Medications
magnesium 250 mg tablet 250 mg PO DAILY Supplement ##0 09/28/22
torsemide 20 mg tablet 40 mg PO DAILY Fluid retention/Swelling 09/28/22
folic acid 1 mg tablet 1 mg PO DAILY Supplement 12/10/23
potassium 99 mg tablet 99 mg PO DAILY Supplement 12/10/23
acetaminophen 500 mg tablet 500 mg PO TID 10/15/24
apixaban 5 mg tablet (Eliquis) 5 mg PO BID Blood Clot Prevention/Tx 10/15/24
ferrous sulfate 325 mg (65 mg iron) tablet (FeroSul) 325 mg PO DAILY Supplement 10/16/24
multivitamin with folic acid 400 mcg tablet (Tab-A-Mary) 1 tab PO DAILY Supplement 10/16/24
Review of Systems
-
A 12 point ROS was completed and negative except as noted: Yes
Physical Exam
Vital Signs
Vital Signs
Temp Pulse Resp BP Pulse Ox
97 F 75 18 113/73 97
05/10/25 08:20 05/10/25 10:06 05/10/25 08:22 05/10/25 08:22 05/10/25 10:16
Physical Exam
General: No Apparent Distress and Obese
HEENT: NormoCephalic and Anicteric
Respiratory: Clear; No Wheezes
Cardiac: S1/S2 and Regular Rhythm
Skin: Other (bilateral LE lymphedema with redness/warmth L>R. With LLE wound with dry, crusted blood. No active bleeding)
Neuro: AO x 3
Psych: Calm
Laboratory Results
-
05/10/25 06:56
05/10/25 08:41
Laboratory Results
Total Bilirubin Cancelled 05/10/25 06:56
AST Cancelled 05/10/25 06:56
ALT Cancelled 05/10/25 06:56
Alkaline Phosphatase Cancelled 05/10/25 06:56
Data Reviewed
-
Lab Data: Labs Reviewed by me
Impression/Plan
-
Assessment:
Chronic lymphedema with wounds - POA
Acute bilateral cellulitis L>R
- DVT study negative
- wound care evaluation
- check blood cultures (reported chills)
- IV Vanco/Ancef
- check MRSA swab
- compression therapy
Parox A. Fib
- rate controlled
- hold Eliquis for today - re-evaluate in AM for resumption after wound care eval
hx of Asthma
chronic HFpEF
- continue Torsemide
Essential HTN
- not on meds, monitor
CKD stage 3b
Hypokalemia
- replete K - 20 meq now
- AM labs
Lambert-Eaton myasthenic syndrome diagnosed 09/2022
DVT ppx: SC heparin
Code: Full
--- NOTE | 2025-05-10 11:50 | PHA.VAN.IN ---
Assessment
- Assessment
Renal Function: Appears similar to baseline
Concomitant Antimicrobials: ancef
Plan
- Plan
Initial / Loading Dose: 2000mg
Maintenance Regimen: prn by level
Monitoring: random 05/11 in am
Pharmacokinetics Vancomycin I
- -
Patient Age: 79
Patient Sex: Male
Vancomycin Day #: 1
Indication: Skin And Soft Tissue
Requesting Provider: Dr. Gonzalez
Height / Weight:
Height 6 ft
Actual Weight 119.4 kg
IBW in k.06
- Vital Signs / Lab Results
Temp Pulse Resp BP Pulse Ox
97 F 75 18 113/73 97
05/10/25 08:20 05/10/25 10:06 05/10/25 08:22 05/10/25 08:22 05/10/25 10:16
Lab Results - Hematology
05/10/25
06:56
WBC 6.2
Lab Results - Chemistry
05/10/25 05/10/25
06:56 08:41
BUN 28 H 27 H
Creatinine 1.7 H 1.6 H
Estimated Creat Clear 49 52
Albumin Cancelled
[2025-05-10] MEDS: KCL 20 MEQ PO (12:05)
[2025-05-10] MEDS: TYLENOL 650 MG PO ×3 (12:05→20:21)
[2025-05-10] MEDS: ANCEF 10 IV ×2 (12:28→20:20)
[2025-05-10] MEDS: VANCOCIN 540 MG IV (13:25)
[2025-05-11] MEDS: ANCEF 10 IV ×3 (03:30→19:59)
[2025-05-11] MEDS: TYLENOL 650 MG PO ×4 (03:34→19:59)
[2025-05-11 06:00] VITALS: BMI 35.5
[2025-05-11 07:37] VITALS: BP 147/72
[2025-05-11 08:07] LABS: Hematocrit 31.3 % (39.0-52.0); Hemoglobin 10.2 g/dL (13.0-18.0); Mean Corp Hgb Conc. 32.6 g/dL (33.0-37.0); Mean Corpuscular Volume 88.9 fL (80.0-94.0); Platelet Count 158 10^3/uL (130-400); Red Cell Dist. Width 18.8 % (11.5-14.5)
[2025-05-11 08:46] LABS: Blood Urea Nitrogen 25 mg/dl (9-20); Calcium 8.6 mg/dl (8.4-10.2); Carbon Dioxide 25 mmol/L (22-30); Chloride 107 mmol/L (98-107); Estimated Creatinine Clearance 65 ml/min; Glucose 121 mg/dl (70-99); Potassium 3.7 mmol/L (3.5-5.1); Sodium 137 mmol/L (135-145); eGFR 56.58
[2025-05-11] MEDS: DEMADEX 40 MG PO (09:44)
[2025-05-11] MEDS: VANCOCIN 200 IV (09:48)
--- NOTE | 2025-05-11 10:53 | PHA.VAN.FU ---
Vancomycin Assessment / Plan
- Assessment
Renal Function: SCR Decreasing (1.3)
WBC's are: WNL
In the past 24 hrs, patient has been: Afebrile
Concomitant Antimicrobials: cefazolin
- Assessment - Therapeutic Drug Monitoring
Random Level: 12.9
- Dosing Plan
Adjust Regimen to: vancomycin 1000mg Q12H
New Regimen Predicts: AUC (482), Peak (27.1), Trough (14.3)
Dosing Comments: T1/2= 11.9, Vd= 0.6
- Monitoring Plan
No level(s) ordered at this time: consider levels in next few days
- Follow Up
Pharmacy will continue to follow.
Vancomycin Follow UP
- -
Patient Age: 79
Patient Sex: Male
Vancomycin Day #: 2
Indication: Skin And Soft Tissue
Requesting Provider: Dr. Gonzalez
Height / Weight:
Height 6 ft 1 in
Actual Weight 122.045 kg
IBW in k.06
Pertinent Past Medical History: cellulitis
- Vital Signs / Lab Results
Temp Pulse Resp BP Pulse Ox
99.4 F 96 20 147/72 98
05/11/25 07:37 05/11/25 09:44 05/11/25 07:37 05/11/25 09:44 05/11/25 07:37
Lab Results - Hematology
05/10/25 05/11/25
06:56 07:53
WBC 6.2 7.5
Lab Results - Chemistry
05/10/25 05/10/25 05/11/25
06:56 08:41 07:53
BUN 28 H 27 H 25 H
Creatinine 1.7 H 1.6 H 1.3
Estimated Creat Clear 49 52 65
Albumin Cancelled
Therapeutic Drug Monitoring
Random Vancomycin 12.9 ug/ml 05/11/25 07:53
--- NOTE | 2025-05-11 11:52 | WOUNDNOTE ---
L GREAT TOE NAIL BED
--- NOTE | 2025-05-11 11:52 | WOUNDNOTE ---
L LOWER LATERAL LEG
--- NOTE | 2025-05-11 11:53 | WOUNDNOTE ---
L POSTERIOR LOWER LEG
--- NOTE | 2025-05-11 11:55 | WOUNDNOTE ---
[facility] RN note: Patient admitted with LE cellulitis, open wounds on L leg.
See H&P for complete history. Lives with , who assists with care.
PMH: 09/2022 admission for fall, rhabdomyolysis, possible Eaton Lambert syndrome, cellulitis, a fib (Eliquis), CHF, HTN, CKD3b, chronic lymphedema, venous ulcers, cellulitis of legs and R thumb amputation.
Wound Location and type/assessment: Patient last seen 11/09/22 for LLE dermal venous ulcers. Reviewed pictures from that time, legs now more swollen, dry flaky skin and same venous ulcers L leg. +Pedal pulses palpable, vascular ultrasound negative
for DVT. L lateral lower leg with pink wound base, scattered dried up blood/flaky skin, + odor. L great toe nail with residual crusted blood, no open wounds or btw toes. Patient stated he hit toe while putting on shoes, causing nail to bleed.
Patient said he was using camilo wraps for compression but stopped putting them on because she claims they make legs worse. Heels are intact. Patient able to turn to side, sacrum is intact.
Appetite: good.
Pressure redistribution devices in place: Advanta with Accumax. Ambulates to bathroom, pillow under calves. Encouraged leg elevation when sitting.
Plan: LE dressings changed, local wound care. Will order Dakin's moist to dry dressing daily. Moisturized legs with Vaseline, will order mineral oil to start tomorrow. Bilateral knee high Camilo wraps applied. Teaching done regarding wound care and
compression, confirmed can assist at home.
Will confirm orders with hospitalist and updated nurse Will on the above.
Care plan to be updated and will follow as needed.
Recommend follow up at wound care center upon discharge for compression recommendations.
--- NOTE | 2025-05-11 15:04 | W.PN.HOSP.TC ---
Today's Communication/Plan
-
ID consult
Assessment / Plan
Assessment / Plan
Chronic lymphedema with wounds - POA
Acute bilateral cellulitis L>R
- DVT study negative
- wound care evaluation
- check blood cultures (reported chills)
- IV Vanco/Ancef
- check MRSA swab
- compression therapy
discussed with Dr. Chan, will place consult to ID, but should wait until wound care unwraps bandages to evaluate legs as to recommended abx and Tx
Parox A. Fib
- rate controlled
- will resume Eliquis today - re-evaluate in AM for resumption after wound care eval. Pt states only takes once daily, even though doctor has prescribed to be taken bid
hx of Asthma
chronic HFpEF
- continue Torsemide
Essential HTN
- not on meds, monitor
CKD stage 3b
Hypokalemia
- repleted K - 20 meq given
- 3.3-->3.7
Lambert-Eaton myasthenic syndrome diagnosed 09/2022
DVT ppx: SC heparin
Code: Full
Anticipated Discharge: > 48 hours
Subjective/Interval History
-
Date of Service: May 11, 2025
Awake, alert
Objective Data
-
Labs:
Laboratory Results
05/11/25
07:53
WBC 7.5
Hgb 10.2 L
Hct 31.3 L
Plt Count 158
Sodium 137
Potassium 3.7
Chloride 107
Carbon Dioxide 25
BUN 25 H
Creatinine 1.3
Glucose 121 H
Calcium 8.6
Vital Signs:
Vital Signs
Temp Pulse Resp BP Pulse Ox
99.4 F 96 20 147/72 98
05/11/25 07:37 05/11/25 09:44 05/11/25 07:37 05/11/25 09:44 05/11/25 12:51
I&O
05/10/25 05/11/25 05/12/25
06:59 06:59 06:59
Intake Total 1220 / 1220
Output Total 1050 / 1050
Balance 170 / 170
Review of Systems
-
History Source: Patient and Coordinated Provider
Constitutional: Reports No Symptoms
EENT: Reports No Symptoms Reported
Respiratory: Reports No Symptoms
Cardiac: Reports No Symptoms
Abdomen/GI: Reports No Symptoms
Musculoskeletal: Reports No Symptoms
Skin: Reports Rash (cellulitis)
Physical Exam
-
General: Well Developed, Well Nourished and No Apparent Distress
HEENT: Normocephalic, Atraumatic and Moist Mucous Membranes
Respiratory: Clear to Auscultation; Negative Wheezes, Rales or Rhonchi
Cardiac: Regular Rhythm and S1/S2
GI: Soft, Nontender and Nondistended
Musculoskeletal: No Clubbing and No Cyanosis; Negative No Edema (chronic lymphedema)
Skin: Rash (legs have been wrapped by wound care earlier today, wrapping not removed, requested I be called when wound care evaluates legs tomorrow, photographs reviewed)
--- NOTE | 2025-05-11 15:35 | CON.ID ---
Consultation
-
Date/Time Consultation Requested: May 11, 2025 1518
Date/Time Consultation Performed: May 11, 2025 1535
Requesting Provider: Dr. Nick Frye
Performing Provider: Dr. Mary Solis
Reason for Consultation: Cellulitis
Chief Complaint / Past History
Chief Complaint
Left leg wounds with bleeding and redness
History of Present Illness
79-year-old male with relation on Eliquis, heart failure with preserved EF, Lambert�Eaton syndrome presented to ED on May 18 for leg swelling and redness. He has chronic lymphedema for which he does compression wraps. During the hot very hot
weather last week, he left the wraps in place for 2 days rather than daily dressing. When he took off the wrap, the skin was stuck to the compression wrap and peeled the skin off. His leg started bleeding profusely which he could not stop. He
noted more redness and swelling of the left leg. He therefore came to the hospital. Positive chills. He was started on vancomycin and cefazolin. Today he reports he feels much improved. The leg swelling and redness have decreased. He is hoping
to go home tomorrow. Denies fevers.
Past History
Additional Past Medical History:
Lambert-Eaton syndrome
Asthma
pA-fib Eliquis
HFpEF
hypertension
melanoma
CKD 3
Chronic lymphedema
Past Surgical History: None
Allergy History:
apple Allergy (Verified 12/10/23 10:28)
ITCHY MOUTH
monosodium glutamate Allergy (Verified 12/10/23 10:28)
restless in bed
peach Allergy (Verified 12/10/23 10:28)
ITCHY MOUTH
pollen extracts Allergy (Verified 12/10/23 10:28)
TRIGGERS ASTHMA
ragweed pollen Allergy (Verified 12/10/23 10:28)
TRIGGERS ASTHMA
Medications Reviewed: Yes
Current Antibiotics:
Vancomycin
Cefazolin
Social History
Tobacco: Non-Smoker
Alcohol: Occasional
Drug: None
Living: Alone
Family History
Family History: Not Pertinent
Review of Systems
Review of Systems
General: Chills; Negative Fever or Change in Appetite
HEENT: Negative Sinus Problems or Headache
Cardiovascular: Negative Chest Pain or Dyspnea
Respiratory: Negative Dyspnea
Gasteroenterology: Negative Nausea, Vomiting or Diarrhea
Endocrine: Negative Weakness or Fatigue
All systems: All other systems were reviewed and were negative
Vital Signs
Temp Pulse Resp BP Pulse Ox
99.4 F 96 20 147/72 98
05/11/25 07:37 05/11/25 09:44 05/11/25 07:37 05/11/25 09:44 05/11/25 12:51
Physical Exam
Physical Exam
Constitutional: No Acute Distress and Comfortable
Eyes: No Conjunctival Hemorrhage and Sclera Anicteric
Cardiovascular: Regular Rate and S1/S2
Pulmonary: Clear
Gastrointestinal: Non Tender, Non Distended and Normal Bowel Sounds
Genito-Urinary: Negative CVA Tenderness
Extremities: Edema (BLE lymphedema) and Erythema (LLE: erythema foot to below knee)
Wound: Other (LLE: distal leg with superficial skin tears, dried blood)
Neurological: AO x 3
Lab / Diagnostic Study Results
05/11/25 07:53
05/11/25 07:53
Abs Immat Gran (auto) 0.0 10^3/uL (0-0.05) 05/10/25 06:56
Absolute Neuts (auto) 4.4 10^3/uL (1.4-6.5) 05/10/25 06:56
Absolute Lymphs (auto) 1.1 10^3/uL (1.2-3.4) L 05/10/25 06:56
Absolute Monos (auto) 0.6 10^3/uL (0.1-0.6) 05/10/25 06:56
Absolute Basos (auto) 0.0 10^3/uL (0-0.2) 05/10/25 06:56
Immature Gran % 0.5 % (0-0.5) 05/10/25 06:56
Neutrophils % 71.0 % (42.2-75.2) 05/10/25 06:56
Lymphocytes % 17.4 % (20.5-51.1) L 05/10/25 06:56
Monocytes % 10.1 % (1.7-9.3) H 05/10/25 06:56
Eosinophils % 0.8 % (0-6) 05/10/25 06:56
Basophils % 0.2 % (0-2) 05/10/25 06:56
Microbiology Results
Micro:
05/10/25 12:08 MRSA Screen - Final
Nose No Methicillin Resistant Staphylococcus aureus isolated.
05/10/25 12:23 Blood Culture - Preliminary
Blood/Venous No Growth in 24 hours- Final report to follow
05/10/25 12:08 Blood Culture - Preliminary
Blood/Venous No Growth in 24 hours- Final report to follow
05/10/25 Venous Duplex: No findings to confirm deep venous thrombosis of the lower extremities bilaterally.
Assessment / Plan
# Acute LLE cellulitis
# LLE bleeding skin tears due to adherence to compression wraps left too long
# Chronic BLE lymphedema
- Continue CASEY-wrap and leg elevation
- DC Vancomycin
- Continue Cefazolin.
- At time of discharge, transition to cephalexin 1000mg po q8h through 05/17.
# Conditions STEMMER MACHINE
Lambert-Eaton syndrome
Asthma
pA-fib Eliquis
HFpEF
hypertension
melanoma
CKD 3
Chronic lymphedema
[2025-05-11 15:47] VITALS: BP 133/69
--- NOTE | 2025-05-11 16:14 | CM ---
Patient lives with spouse, son and grandchildren in a multilevel home, is independent with adl's and uses a cane or walker with ambulation. Patient has wound care evaluation, will check for ABX, plan is to home with visiting nurses, [facility] liaison
contacted.
PCP: Dr. Randall
Pharmacy: [facility]
Plan; Home when stable.
[2025-05-11] MEDS: ELIQUIS 5 MG PO (19:59)
[2025-05-11 23:12] VITALS: BP 137/70
[2025-05-12] MEDS: TYLENOL 650 MG PO ×2 (00:04→04:19)
--- NOTE | 2025-05-12 03:42 | DOWNTIME ---
There was a [employer] Sales Representative Downtime on 05/12/2025 from 0100 to 05/12/2025 at 0220. Downtime documentation of patient's care, including medication administrations, has been reconciled in the electronic record per guidelines. Refer to the
patient's paper chart under the miscellaneous tab to see printed paper medication records and downtime forms.
[2025-05-12] MEDS: ANCEF 10 IV ×2 (04:18→12:55)
[2025-05-12 06:00] VITALS: BMI 33.8
[2025-05-12 08:03] LABS: Hematocrit 28.8 % (39.0-52.0); Hemoglobin 9.4 g/dL (13.0-18.0); Mean Corp Hgb Conc. 32.6 g/dL (33.0-37.0); Mean Corpuscular Volume 90.0 fL (80.0-94.0); Nucleated Red Blood Cells % 0 % (-); Platelet Count 149 10^3/uL (130-400); Red Cell Dist. Width 19.2 % (11.5-14.5)
[2025-05-12 08:16] VITALS: BP 151/77
[2025-05-12 08:29] LABS: Blood Urea Nitrogen 23 mg/dl (9-20); Calcium 8.7 mg/dl (8.4-10.2); Carbon Dioxide 25 mmol/L (22-30); Chloride 106 mmol/L (98-107); Estimated Creatinine Clearance 59 ml/min; Glucose 129 mg/dl (70-99); Potassium 3.5 mmol/L (3.5-5.1); Sodium 138 mmol/L (135-145); eGFR 51.77
[2025-05-12] MEDS: DAKIN'S SOLUTION 0.125% 1/4 STRENGTH 473 ML TOPICAL (08:49)
[2025-05-12] MEDS: ELIQUIS 5 MG PO (08:50)
[2025-05-12] MEDS: HYDROPHOR 1 APPLIC TOPICAL (08:50)
[2025-05-12] MEDS: DEMADEX 40 MG PO (08:51)
--- NOTE | 2025-05-12 09:23 | VNURNOTE ---
Home Health Liaison met with patient at bedside to discuss [facility] nurse/therapy, visits, schedule and homebound status. Patient is agreeable and understands that visits at home will be 2-3 x per week to assess and teach medical management. Patient
is aware that [facility] will contact them for start of care in 1-2 days after discharge from . He is familiar with [facility], has had us in the past. He confirms he has a scale at home.
[facility] referral accepted in [facility] Port.
--- NOTE | 2025-05-12 10:23 | W.PN.ID1 ---
Date of Service
Date of Service: May 12, 2025
Today's Communication
Can transition cefazolin to cephalexin 1000mg po q8h through 05/17.
Assessment / Plan
# Acute LLE cellulitis
# LLE bleeding skin tears due to adherence to compression wraps left too long
# Chronic BLE lymphedema
- Continue CASEY-wrap and leg elevation
- Can transition cefazolin to cephalexin 1000mg po q8h through 05/17.
# Conditions [employer]
Lambert-Eaton syndrome
Asthma
pA-fib Eliquis
HFpEF
hypertension
melanoma
CKD 3
Chronic lymphedema
Chief Complaint
-: Cellulitis
Subjective / Review of Systems
No complaints
Vital Signs / Physical Exam
Vital Signs
Vital Signs
Temp Pulse Resp BP Pulse Ox
98.3 F 96 14 151/71 98
05/12/25 08:16 05/12/25 08:51 05/12/25 08:16 05/12/25 08:51 05/12/25 08:16
Physical Exam
Constitutional: No Acute Distress
Cardiovascular: Regular Rate and S1/S2
Pulmonary: Clear
Gastrointestinal: Soft, Non Tender and Non Distended
Extremities: Edema (lymphedema BLE - R>L) and Erythema (LLE decreased )
Wound: Other (LLE superficial wounds dry)
Objective Data
Lab Data
Lab Results
05/12/25 07:42
05/12/25 07:42
Estimated Creat Clear 59 ml/min 05/12/25 07:42
Total Bilirubin Cancelled 05/10/25 06:56
AST Cancelled 05/10/25 06:56
ALT Cancelled 05/10/25 06:56
Alkaline Phosphatase Cancelled 05/10/25 06:56
Most recent labs reviewed.
Micro Results:
05/10/25 12:08 MRSA Screen - Final
Nose No Methicillin Resistant Staphylococcus aureus isolated.
05/10/25 12:23 Blood Culture - Preliminary
Blood/Venous No Growth in 24 hours- Final report to follow
05/10/25 12:08 Blood Culture - Preliminary
Blood/Venous No Growth in 24 hours- Final report to follow
05/10/25 Venous Duplex: No findings to confirm deep venous thrombosis of the lower extremities bilaterally.
Care Review
Plan reviewed with: Physician (Dr. Frye)
--- NOTE | 2025-05-12 15:21 | W.PN.HOSP.TC ---
Today's Communication/Plan
-
dc to home
Assessment / Plan
Assessment / Plan
Chronic lymphedema with wounds - POA
Acute bilateral cellulitis L>R
- DVT study negative
- wound care evaluation
- check blood cultures (reported chills)
- IV Vanco/Ancef to transition to Keflex
- check MRSA swab
- compression therapy
discussed with Dr. Chan, will place consult to ID, but should wait until wound care unwraps bandages to evaluate legs as to recommended abx and Tx
Parox A. Fib
- rate controlled
- will resume Eliquis today - re-evaluate in AM for resumption after wound care eval. Pt states only takes once daily, even though doctor has prescribed to be taken bid
hx of Asthma
chronic HFpEF
- continue Torsemide
Essential HTN
- not on meds, monitor
CKD stage 3b
Hypokalemia
- repleted K - 20 meq given
- 3.3-->3.7-->3.5
Lambert-Eaton myasthenic syndrome diagnosed 09/2022
DVT ppx: SC heparin
Code: Full
reviewed with Dr. Solis
Will dc now
see dictated note
More than 30 minutes spent in discharge including
Final examination of the patient
Summarizing hospital stay
Instructions for continuing care to all relevant caregivers
Preparation of discharge records, prescriptions, and referral forms
Total time spent (in minutes): 45
Anticipated Discharge: Today
Subjective/Interval History
-
Date of Service: May 12, 2025
Feels well
Objective Data
-
Labs:
Laboratory Results
05/12/25
07:42
WBC 6.9
Hgb 9.4 L
Hct 28.8 L
Plt Count 149
Sodium 138
Potassium 3.5
Chloride 106
Carbon Dioxide 25
BUN 23 H
Creatinine 1.4 H
Glucose 129 H
Calcium 8.7
Vital Signs:
Vital Signs
Temp Pulse Resp BP Pulse Ox
98.3 F 96 14 151/71 98
05/12/25 08:16 05/12/25 08:51 05/12/25 08:16 05/12/25 08:51 05/12/25 14:28
I&O
05/11/25 05/12/25 05/13/25
06:59 06:59 06:59
Intake Total 1220 / 1220 660 / 660 480 / 480
Output Total 1050 / 1050 850 / 850 600 / 600
Balance 170 / 170 -190 / -190 -120 / -120
Review of Systems
-
History Source: Patient and Coordinated Provider
Constitutional: Reports No Symptoms
EENT: Reports No Symptoms Reported
Respiratory: Reports No Symptoms
Cardiac: Reports No Symptoms
Abdomen/GI: Reports No Symptoms
Musculoskeletal: Reports No Symptoms
Skin: Reports Rash (cellulitis)
Physical Exam
-
General: Well Developed, Well Nourished and No Apparent Distress
HEENT: Normocephalic, Atraumatic and Moist Mucous Membranes
Respiratory: Clear to Auscultation; Negative Wheezes, Rales or Rhonchi
Cardiac: Regular Rhythm and S1/S2
GI: Soft, Nontender and Nondistended
Musculoskeletal: No Clubbing and No Cyanosis; Negative No Edema (chronic lymphedema)
Skin: Rash (lymphedema with cellulitic changes)
--- NOTE | 2025-05-12 15:34 | CM ---
CM reviewed chart, patient for discharge today, home with [facility]. IMM verbally reviewed, provided with copy, placed in chart. Patient confirms transportation home. CM will continue to follow for all discharge planning needs.
Plan; home with [facility]
--- NOTE | 2025-05-12 15:38 | W.DS.TRANS ---
DC Summary - Onsite Health Coach
-
Discharge Instructions:
Sleep Apnea Risk High
Discharge Diagnosis/Procedures Bilateral Lower Extremity Cellulitis
Diet No added salt
Activity As tolerated
Additional Activity leg elevation when sitting
Driving Restrictions As prior to admission
Bathing Restrictions None
Blood Work CBC, CMP in 1-2 weeks
Instructions:
Stand-Alone Forms:
Changes to Home Medications: Yes
Discharge Medications:
DC Medications w/original date entered in [employer]
magnesium 250 mg tablet 500 mg PO DAILY Supplement ##0 09/28/22
torsemide 20 mg tablet 40 mg PO DAILY Fluid retention/Swelling 09/28/22
folic acid 1 mg tablet 1 mg PO DAILY Supplement 12/10/23
acetaminophen 500 mg tablet 500 mg PO TID 10/15/24
apixaban 5 mg tablet (Eliquis) 5 mg PO BID Blood Clot Prevention/Tx 10/15/24
ferrous sulfate 325 mg (65 mg iron) tablet (FeroSul) 325 mg PO DAILY Supplement 10/16/24
multivitamin with folic acid 400 mcg tablet (Tab-A-Mary) 1 tab PO DAILY Supplement 10/16/24
cephalexin 500 mg capsule 500 mg PO QID 10 days #40 caps 05/12/25
Home Medication Changes
Keflex added
Pending Results: No
[2025-05-12 15:53] VITALS: BP 159/83
== END 2025-05-12 17:32 | disposition home health service (06) | DRG 603 ==
LOC: 4 WEST ACU 11:56
PROVIDERS: Registered Nurse; ADMITTING PHYSICIAN Internal Medicine; ATTENDING PHYSICIAN Internal Medicine; EMERGENCY PHYSICIAN Student in an Organized Health Care Education/Training Program; FAMILY PHYSICIAN Physician Assistant; OTHER PHYSICIAN Internal Medicine Infectious Disease
DX: L03.115 Cellulitis of right lower limb (principal); I50.32 Chronic diastolic (congestive) heart failure; I13.0 Hypertensive heart and chronic kidney disease with heart failure and stage 1 through stage 4 chronic kidney disease, or unspecified chronic kidney disease; G70.80 Lambert-Eaton syndrome, unspecified; L03.116 Cellulitis of left lower limb; I89.0 Lymphedema, not elsewhere classified; Z79.01 Long term (current) use of anticoagulants; I48.0 Paroxysmal atrial fibrillation; J45.909 Unspecified asthma, uncomplicated; N18.32 Chronic kidney disease, stage 3b; E87.6 Hypokalemia; Z85.820 Personal history of malignant melanoma of skin; Z87.891 Personal history of nicotine dependence
CPT/HCPCS: 80048; 80202; 83880; 85025; 85027; 87040; 87070; 93970; 99285

== ENCOUNTER 2025-07-16 15:33 | Observation (INO) | payer MEDICARE, OTHER, SELFPAY ==
[2025-07-16] VITALS (10 sets, daily range): BP systolic 125–165; BP diastolic 63–92; PULSE 96–108; BMI 34.4
--- NOTE | 2025-07-16 11:15 | ED.GENMED ---
History of Present Illness
General
Chief Complaint: Fainting Sensation
Source: patient
Exam Limitations: none
Time Seen by Provider: 07/16/25 10:59
Nursing documentation reviewed up to this point in time: agreed with
History of Present Illness
History of Present Illness:
Note:
CHIEF COMPLAINT(S)
Lightheadedness and shortness of breath for 24 hours.
HISTORY OF PRESENT ILLNESS
The patient is a 80-year-old male presenting with symptoms of lightheadedness and shortness of breath over the past 24 hours. The patient reports using an inhaler as needed and is currently on apixaban. He denies any chest pain but experiences
slight shortness of breath when climbing stairs. The patient mentioned driving himself to the medical facility despite feeling as if he was about to collapse. He lives with his and oldest son along with his sons children.
MEDICATIONS
The patient is currently taking apixaban.
REVIEW OF SYSTEMS
- Respiratory: Reports shortness of breath, especially noticeable during physical exertion like climbing stairs.
- Cardiovascular: Denies chest pain. Reports lightheadedness.
PHYSICAL EXAM
General: Alert, no acute distress.
Skin: Warm, dry.
Head: Normocephalic, atraumatic.
Neck: Supple, trachea midline.
Eye Ears, nose, mouth and throat: Oral mucosa moist.
Cardiovascular: Normal peripheral perfusion, No edema.
Respiratory: Respirations are non-labored.
Gastrointestinal: Abdomen nondistended.
Back: Normal range of motion, Normal alignment.
Musculoskeletal: Normal ROM, normal strength.
Neurological: Alert and oriented to person, place, time, and situation, No focal neurological deficit observed.
Psychiatric: Cooperative, appropriate mood & affect.
PLAN
The provider reviewed the patient�s laboratory results, chest X-ray, and electrocardiogram, noting no immediate cause for the symptoms was apparent from these tests. The provider advised the patient against driving while feeling lightheaded and
suggested contacting someone else for transportation in the future for safety.
DIFFERENTIAL DIAGNOSIS
The Differential Diagnosis includes, in no particular order and is not limited to:
1. Postural hypotension
2. Anemia
3. Dehydration
4. Cardiac arrhythmia
5. Acute coronary syndrome
6. Pulmonary embolism
7. Chronic obstructive pulmonary disease exacerbation
8. Congestive heart failure
9. Anxiety
10. Hyperventilation syndrome
CARE-UPDATE
07/16/25 - 13:35
Mild improvement noted post-duoneb administration. Plan to repeat duoneb and administer Decadron. Admission under hospitalist care for evaluation of near syncope episode and management of exacerbation.
EKG
My independent EKG interpretation is:
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
- Rhythm: Sinus tachycardia
- Heart Rate: 101 bpm
- [place] Interval: First-degree AV block
- QRS Duration: Normal
- [place]: Left axis deviation
- Abnormalities: Non-specific abnormality
Disposition:
SUMMARY OF ENCOUNTER
The patient, a 80-year-old male, presented to the emergency department with a 24-hour history of lightheadedness and shortness of breath. The patient uses an inhaler as needed and is on apixaban. While he denied chest pain, he reported shortness of
breath upon physical exertion, such as climbing stairs. During the visit, duoneb administration provided mild improvement, but his symptoms persisted, indicating significant concern.
DISPOSITION
Admit under hospitalist care for further evaluation and management.
ASSESSMENT
The patient is assessed with near syncope and a possible exacerbation of asthma or chronic obstructive pulmonary disease (COPD). Consideration is given to postural hypotension, anemia, dehydration, cardiac arrhythmia, acute coronary syndrome,
pulmonary embolism, congestive heart failure, anxiety, and hyperventilation syndrome.
EMERGENCY TREATMENTS ADMINISTERED
The patient received a duo-nebulizer treatment and was planned to receive Dexamethasone (Decadron) intravenously.
MANAGEMENT OF THE PATIENTS CARE WAS DISCUSSED WITH
Admission under hospitalist care was arranged for further evaluation and management of the patients symptoms.
PLAN
The plan includes admission for further evaluation by the hospitalist to manage the symptom exacerbation and the near syncope episode, with a repeated duoneb treatment and IV Dexamethasone administration ordered.
INDEPENDENT REVIEW OF LABS AND INTERPRETATION OF TESTS
My independent EKG interpretation is:
- Rhythm: Sinus tachycardia
- Heart Rate: 101 bpm
- [place] Interval: First-degree AV block
- QRS Duration: Normal
- [place]: Left axis deviation
- Abnormalities: Non-specific abnormality
PATIENT EDUCATION AND COUNSELING
The patient was advised against driving while experiencing lightheadedness and was encouraged to arrange transportation with someone else in the future for safety.
MEDICATION RECONCILIATION
The patient is currently taking apixaban. Additionally, Dexamethasone was ordered for IV administration during the visit, and repeat duo-nebulizer treatments were planned.
MEDICAL DECISION MAKING
- Number and Complexity of Problems Addressed:
Chronic conditions affecting care: Chronic kidney disease, near syncope. Differential diagnosis includes postural hypotension, anemia, dehydration, cardiac arrhythmia, acute coronary syndrome, pulmonary embolism, chronic obstructive pulmonary
disease exacerbation, congestive heart failure, anxiety, and hyperventilation syndrome.
- Data:
Category 1: My independent interpretation of EKG shows sinus tachycardia, first-degree AV block, normal QRS duration, left axis deviation, and non-specific abnormality.
-Risk:
The patients risk is heightened due to prescription drug management and potential exacerbation of underlying conditions, warranting admission for further evaluation and management.
DIAGNOSIS
1. Chronic Obstructive Pulmonary Disease exacerbation (possible) - ICD-10: J44.1
2. Near Syncope - ICD-10: R55
3. Chronic Kidney Disease - ICD-10: N18.9
Past History
Past History
ED Past Medical History: Arrthythmia (Atrial fibrillation), Asthma, CHF, GERD, HTN and Other (Melanoma, chronic kidney disease, admission for pneumonia November 2017, Lambert-Eaton myasthenic syndrome diagnosed 09/2022)
ED Past Surgical History: Other (Agree with documented past surgical history)
Social History
Tobacco: Former smoker
Alcohol: Daily
Drug: None
Personal:
Living: with family
Employment: Retired
Family History
Family History: Other (Reviewed and noncontributory)
Phy Exam
Physical Exam
Physical Exam:
.
Course
Orders/Labs/Results
Orders:
Orders
07/16/25 10:43
Electrocardiogram (*1) Urgent
Reason for Study: Other
Other Reason for Exam: lightheaded
EKG- Treatment ONCE
07/16/25 11:14
Cardiac Monitoring- Treatment ONCE
IV Insert/Care/Rem.- Treatment PRN
Pulse Ox/cont/shift [RESP] Stat
Quantity: 1
07/16/25 11:15
Electrocardiogram (*1) Stat
Reason for Study: Other
Other Reason for Exam: pneumonia
EKG- Treatment ONCE
CR Chest - 2 Views Urgent
Comment:
Reason For Exam: short of breath
07/16/25 11:27
Complete Blood Count/With Diff Urgent
Comprehensive Metabolic Panel Urgent
NT-proBNP Urgent
Troponin I Urgent
07/16/25 13:00
Ipratropium/Albuterol Sulfate [Duoneb] 3 ml INH R NOW STA
07/16/25 13:33
Dexamethasone Sod Phosphate [Decadron] 10 mg IV NOW STA
Ipratropium/Albuterol Sulfate [Duoneb] 3 ml INH R NOW STA
Abnormal Lab Results
07/16/25
11:27
RBC 3.34 L 10^6/uL
(4.70-6.10)
Hgb 10.6 L g/dL
(13.0-18.0)
Hct 30.9 L %
(39.0-52.0)
MCH 31.7 H pg
(27.0-31.0)
RDW 15.7 H %
(11.5-14.5)
Absolute Lymphs (auto) 0.9 L 10^3/uL
(1.2-3.4)
Lymphocytes % 16.4 L %
(20.5-51.1)
Potassium 3.4 L mmol/L
(3.5-5.1)
BUN 27 H mg/dl
(9-20)
Creatinine 1.5 H mg/dL
(0.7-1.3)
Glucose 107 H mg/dl
(70-99)
07/16/25 11:27
07/16/25 11:27
Vital Signs
Initial and Last Documented VS:
Initial Vital Signs
Temp Pulse Resp BP Pulse Ox
98.2 F 99 16 165/92 97
07/16/25 10:41 07/16/25 10:41 07/16/25 10:41 07/16/25 10:41 07/16/25 10:41
Last Documented Vital Signs
Temp Pulse Resp BP Pulse Ox
98.2 F 99 20 146/77 97
07/16/25 10:41 07/16/25 11:06 07/16/25 11:06 07/16/25 11:06 07/16/25 11:15
*Pulse Oximetry
SaO2: 97
Oxygen Mode of Delivery: Room air
Patient hypoxic: no
*Critical Care Note
Total Time (30-74mins, 75-104mins- exclusive of procedures): Not Applicable
ED Attending Note
-
Portions of this chart may have been created with voice recognition software.� Occasional wrong word or��sound alike� substitutions may have occurred due to the inherent limitations of voice recognition software.
Discharge Plan
Departure
Prescriptions:
No Action
torsemide 20 mg Tablet
40 mg PO DAILY
magnesium 250 mg Tablet
500 mg PO DAILY Qty: 0
folic acid 1 mg Tablet
1 mg PO DAILY
Eliquis 5 mg Tablet
5 mg PO BID
Patient Comments:
05/10/25-patient stopped taking his second dose
acetaminophen 500 mg Tablet
500 mg PO TID
ferrous sulfate [FeroSul] 325 mg (65 mg iron) tablet
325 mg PO DAILY
multivitamin with folic acid [Tab-A-Mary] 400 mcg tablet
1 tab PO DAILY
cephalexin 500 mg capsule
500 mg PO QID 10 Days Qty: 40 0RF
Referrals:
Augie Randall PA [Family Provider, Family Practice]
Interventions
Interventions:
*Risk Screen - Suicide Last Done: 07/16/25 10:41
*General Assessment Last Done: 07/16/25 11:07
*Neglect/Abuse Screening Last Done: 07/16/25 10:41
ED- Cardiac Assessment Last Done: 07/16/25 11:07
ED- Neurological Assessment Last Done: 07/16/25 11:07
Discharge Date and Time
Print Language: SAMI
[2025-07-16 11:35] LABS: Hematocrit 30.9 % (39.0-52.0); Hemoglobin 10.6 g/dL (13.0-18.0); Mean Corp Hgb Conc. 34.3 g/dL (33.0-37.0); Mean Corpuscular Volume 92.5 fL (80.0-94.0); Nucleated Red Blood Cells % 0 % (-); Platelet Count 193 10^3/uL (130-400); Red Cell Dist. Width 15.7 % (11.5-14.5)
[2025-07-16 11:48] LABS: ALT (SGPT) 18 U/L (0-50); AST (SGOT) 29 U/L (17-59); Albumin 4.4 g/dl (3.5-5.0); Alkaline Phosphatase 47 U/L (38-126); Blood Urea Nitrogen 27 mg/dl (9-20); Calcium 9.1 mg/dl (8.4-10.2); Carbon Dioxide 22 mmol/L (22-30); Chloride 105 mmol/L (98-107); Estimated Creatinine Clearance 53 ml/min; Glucose 107 mg/dl (70-99); Potassium 3.4 mmol/L (3.5-5.1); Sodium 140 mmol/L (135-145); Total Protein 7.6 g/dl (6.3-8.2); eGFR 47.36
[2025-07-16 11:59] LABS: Troponin I 0.027 ng/ml
[2025-07-16] MEDS: DUONEB 3 ML INH ×2 (13:11→13:45)
[2025-07-16] MEDS: DECADRON 10 MG IV (13:45)
--- NOTE | 2025-07-16 14:03 | HPS.HSE ---
Family Physician
-
Family Physician: OREN Jimenez
Chief Complaint
-
lightheadedness
History of Present Illness
Patient is a 80-year-old male with past medical history significant for hypertension, hyperlipidemia, atrial fibrillation, asthma, HFpEF, chronic kidney disease IIIb, depression/anxiety and GERD who presented to [facility] ED for evaluation of
lightheadedness and blurry vision. Patient reports symptoms started yesterday evening with lightheadedness and sensation he was going to collapse it was associated with blurry vision in both eyes worse in left eye. Symptoms have persisted into
today. Patient also reports that he has been experiencing exertional dyspnea, bilateral lower extremity discomfort and increased generalized weakness. He denies fever, chills, cough, chest pain, confusion, sensational deficits or syncopal episode.
Medical History
Past Medical History
Past Medical History: Reports Other
Additional Past Medical History:
hypertension
hyperlipidemia
atrial fibrillation
asthma
HFpEF
chronic kidney disease IIIb
depression/anxiety
GERD
melanoma
Lambert-Eaton myasthenic syndrome diagnosed 09/2022)
Past Surgical History: Reports None
Additional Past Surgical History:
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
ablation 02/18/21
Social History
Tobacco: Non-smoker
Alcohol: Daily (approximately 3 ounces per day )
Drug: None
Personal:
Living: With Family
Employment: Retired
Family History
Family History: Not pertinent
Allergies / Home Medications
Allergies reflects when Allergies were last updated in [employer].
Home Medications with original date entered in [employer]
Allergy/Medication List:
Allergies
Allergy/AdvReac Type Severity Reaction Status Date / Time
apple Allergy ITCHY MOUTH Verified 07/16/25 10:42
monosodium glutamate Allergy restless Verified 07/16/25 10:42
in bed
peach Allergy ITCHY MOUTH Verified 07/16/25 10:42
pollen extracts Allergy TRIGGERS Verified 07/16/25 10:42
ASTHMA
ragweed pollen Allergy TRIGGERS Verified 07/16/25 10:42
ASTHMA
Home Medications
torsemide 20 mg tablet 40 mg PO DAILY Fluid retention/Swelling 09/28/22
acetaminophen 500 mg tablet 1,000 mg PO QID 10/15/24
apixaban 5 mg tablet (Eliquis) 5 mg PO BID Blood Clot Prevention/Tx 10/15/24
allopurinol 100 mg tablet 200 mg PO DAILY 07/16/25
magnesium oxide 400 mg PO DAILY 07/16/25
Review of Systems
-
History Source: Patient
Constitutional: Reports Fatigue; Denies Fever, Weight Gain or Chills
EENT: Reports Other (blurry vision L>R); Denies Sore Throat
Respiratory: Reports Trouble Breathing (exertional dyspnea ); Denies Cough
Cardiac: Denies Chest Pain, Diaphoresis, Palpitations or Syncope
Abdomen/GI: Reports No Symptoms
: Denies Dysuria, Frequency, Difficulty Voiding or Urgency
Musculoskeletal: Reports Other (bilateral lower extremity discomfort )
Skin: Reports Rash (bilateral lower extremities )
Neurological: Reports Dizzy and Weakness; Denies Headache or Numbness
Physical Exam
Vital Signs
Vital Signs
Temp Pulse Resp BP Pulse Ox
98.2 F 99 20 146/77 97
07/16/25 10:41 07/16/25 11:06 07/16/25 11:06 07/16/25 11:06 07/16/25 11:15
Physical Exam
General: Well Developed, Well Nourished, No Apparent Distress, Comfortable, Conversant and Morbidly Obese
HEENT: NormoCephalic, Moist mucous membranes, Atraumatic, Nose Appears Normal and Ears Appear Normal
Respiratory: Clear and Non Labored Respirations
Cardiac: S1/S2, Regular Rhythm, Tachycardia and Peripheral Edema (bilateral lower extremity +3-4 ); No Murmur, Rub or Gallop
GI: Soft, Non Tender, Non Distended and Normal Bowel Sounds
Musculoskeletal: No Clubbing and No Cyanosis
Skin: Warm, Dry and IV/Catheter Site
Neuro: Awake, AO x 3, Nonfocal/grossly intact, Cranial Nerves Intact (II-XII) and No Sensory Deficits; No Slurred Speech, Facial Droop, Tremors or Sedated
Hematologic/Lymphatic: No Lymphadenopathy
Psych: Calm
Laboratory Results
-
07/16/25 11:27
07/16/25 11:27
Laboratory Results
Total Bilirubin 0.6 mg/dl (0.2-1.3) 07/16/25 11:27
AST 29 U/L (17-59) 07/16/25 11:27
ALT 18 U/L (0-50) 07/16/25 11:27
Alkaline Phosphatase 47 U/L (38-126) 07/16/25 11:27
Troponin I 0.027 ng/ml 07/16/25 11:27
Data Reviewed
-
Diagnostic Radiology: Report Reviewed by me (CXR: No acute disease of the chest Possible right lung pulmonary nodule. Nonurgent chest CT examination without IV contrast recommended)
Medical Tests (Nuc Med, Echo, EKG etc): Report Reviewed by me (EKG: SINUS TACHYCARDIA WITH 1ST DEGREE A-V BLOCK NONSPECIFIC ST ABNORMALITY)
Lab Data: Labs Reviewed by me (hgb 10.6, hct 30.9, BUN 27, Creat 1.5, est CrCl 53, eGFR 47.36)
Impression/Plan
-
IMPRESSION/PLAN:
#lightheadedness, blurry vision L>R and exertional dyspnea
#HFpEF exacerbation vs. asthma/COPD exacerbation vs. dehydration with deconditioning vs. neurologic
weight stable at home
hgb 10.6, hct 30.9
EKG: SINUS TACHYCARDIA WITH 1ST DEGREE A-V BLOCK
NONSPECIFIC ST ABNORMALITY
CXR: No acute disease of the chest
Possible right lung pulmonary nodule. Nonurgent chest CT examination without IV contrast recommended
- Admit to telemetry
- PRN Refresh tears
- head CT pending
- orthostatic VS
- consider MRI if no improvement
#atrial fibrillation
EKG: SINUS TACHYCARDIA WITH 1ST DEGREE A-V BLOCK
NONSPECIFIC ST ABNORMALITY
- continue Eliquis
#HFpEF
- daily weights
- I & Os
- hold torsemide
#chronic kidney disease IIIb
BUN 27, Creat 1.5, est CrCl 53, eGFR 47.36
- appears stable, monitor BMP
#asthma
#hypertension
#hyperlipidemia
#depression/anxiety
#GERD
Code status: full code
DVT prophylaxis: Eliquis
--- NOTE | 2025-07-16 14:15 | W.PN.UPDATE ---
Addendum entered and electronically signed by Yuliya Black MD 07/16/25 15:39:
Patient reported that he hadn't had breakfast or lunch today and he usually does. This may be contributing to symptoms.
Addendum entered and electronically signed by Yuliya Black MD 07/16/25 15:34:
Orthostats negative but patient felt shakey when he stood up per RN, will trial small bolus to see if helps symptoms
Original Note:
Update Note
Progress Note Update
This is an addendum to H&P written by [employer] VISITING TEACHER Drai Taylor
I saw and examined the patient.
The [employer] VISITING TEACHER's note was reviewed and I agree with the note.
Comment:
Mr. Jelani Carter is a 80 yo man with hx paroxysmal afib on Eliquis, asthma, HFpEF, essential HTN, CKD IIIB, chronic LE lymphedema, Lambert-Eaton myasthenic syndrome who presents to the ER complaining of lightheadedness and feeling like he was going
to pass out. Patient is a poor historian. He states symptoms started this AM. He sleeps in a recliner. When he stood up he felt very lightheaded and sat back down. He currently states he doesn't feel like he's going to pass out but still feels
lightheaded. No chest pain but feels like heart is beating fast. He did OK using the bathroom earlier. He has chronic shortness of breath, doesn't feel like it is worse than normal but possibly more winded with activity. He also complains of
blurry vision in each eye, not double vision, worse in left. He has chronic dry eye.
Triage VS: T 98.2, P 99, RR 16, BP 165/92, SpO2 97%
On exam patient is AAO x 3, conversant; MIS, EOMI, bilateral scleral erythema. CV: mild tachycardia; Chest without wheezing, b/l LE lymphedema. No facial asymmetry, tongue protrusion midline, no pronator drift, 5/5 strength upper and lower
extrmeities.
LABS: WBC 5.4, Hg 10.6, PLT 193, Na 140, K+ 3.4, Cl 105, CO2 22, Cr 1.5, Glucose 107, liver enzymes WNL, Trop 0.027, bNP 668
MAR: IV Decadron, Duonebs, Tylenol
Lightheadedness
-concern for dehydration/ orthostatic hypotension
-check orthostats now
-admit to telemetry
-if orthostats positive will give fluid bolus and see how symptoms respond
-hold Torsemide for now
-CT Head now given patient's report loss of proprioception; if sx do not resolve with fluids, can consider MRI
Blurry Vision
-patient has dry eyes on exam, suspect this is contributing to blurry vision
-order eye drops and monitor response
-patient should follow up with Audit Officer at discharge
Right Lung Pulmonary Nodule
-nonurgent chest CT without IV contrast recommended
CKD IIIB
-creatinine at baseline
Paroxysmal Afib
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
Chronic b/l LE Lymphedema
HFpEF
-hold Torsemide for now
DVT PPx VIDEO PRESENTATION OPERATOR Eliquis
FULL CODE
[2025-07-16] MEDS: TYLENOL 1000 MG PO (14:44)
[2025-07-16] MEDS: REFRESH EYE DROPS (PF) 1 DROPS BOTH EYES (15:21)
[2025-07-16] MEDS: NSS 500 IV (16:03)
--- NOTE | 2025-07-16 16:47 | EDCM ---
CM reviewed chart and met with pt bedside in ED. Lives with his , son and son's children in multilevel home. Pt and his live on basement level, [address], has bedroom and full bath.
Independent in ADLs, personal care and ambulation at baseline. Uses cane, also has walker. Has shower chair.
Confirms prescription coverage.
DENNIS reviewed and signed, copy left with pt.
Hx [facility] and SNF, unsure which one
PCP: Augie Randall
Pharmacy: [facility]
CM will continue to follow for all discharge planning needs.
--- NOTE | 2025-07-16 18:25 | PTCARENOTE ---
Pt received as admit from ED. AAOx3. NSR on tele, HR 70s. Pt endorses dyspnea on exertion. Lungs clear to auscultation, diminished at bases. SpO2 96% on room air. VSS. +4 B/L LE edema noted. LEs red, dry and flakey. B/L dorsalis pedis pulses present
with doppler. Assessment documented. Pt resting in bed, call phillips in reach.
[2025-07-16 19:59] LABS: Magnesium 1.8 mg/dl (1.6-2.3)
[2025-07-16] MEDS: ELIQUIS 5 MG PO (21:28)
[2025-07-16] MEDS: KCL 20 MEQ PO (21:28)
[2025-07-17] MEDS: TYLENOL 650 MG PO ×3 (01:56→15:09)
[2025-07-17 04:15] VITALS: BP 149/74
[2025-07-17 04:53] VITALS: BMI 34.6
[2025-07-17 06:15] LABS: Blood Urea Nitrogen 27 mg/dl (9-20); Calcium 9.1 mg/dl (8.4-10.2); Carbon Dioxide 21 mmol/L (22-30); Chloride 108 mmol/L (98-107); Estimated Creatinine Clearance 62 ml/min; Glucose 158 mg/dl (70-99); Potassium 4.3 mmol/L (3.5-5.1); Sodium 139 mmol/L (135-145); eGFR 56.23
[2025-07-17 07:00] VITALS: BP 169/80
--- NOTE | 2025-07-17 07:30 | W.PN.HOSP.TC ---
Addendum entered and electronically signed by Marcel Horton MD 07/17/25 17:00:
I communicated with Dr. Mik Hare, and on discharge, she recommended Torsemide 40 mg Q48H and Aldactone 12.5 mg daily, appreciate cardiology help.
Original Note:
Today's Communication/Plan
-
Feeling better after IV fluids but complaining of weight gain and RVR with ambulation -- start beta walt?
Appreciate cardiology
Monitor on telemetry
Assessment / Plan
Assessment / Plan
Physical Exam
General: Not in acute distress
HEENT: Normocephalic, Moist mucous membranes
Respiratory: Clear to Auscultation Bilaterally
Cardiac: S1/S2, Regular Rhythm, Peripheral Edema (bilateral lower extremity +3-4 )
GI: Soft, Non Tender, Non Distended and Normal Bowel Sounds
Musculoskeletal: No Cyanosis
Skin: Warm, Dry
Neuro: Awake, AO x 3, Nonfocal/grossly intact, Cranial Nerves Intact (II-XII) and No Sensory Deficits
Psych: Calm
Assessment/Plan
80 y/o male with past medical history of paroxysmal A-fib on Eliquis, Asthma, HFpEF, essential HTN, CKD IIIB, chronic LE lymphedema, Lambert-Eaton myasthenic syndrome who presented to the ER complaining of lightheadedness and feeling like he was
going to pass out. Patient is a poor historian. He stated that his symptoms started on the morning of 07/16/25. He sleeps in a recliner. When he stood up he felt very lightheaded and sat back down. No chest pain but he felt like his heart was
beating fast. He has chronic shortness of breath, doesn't feel like it is worse than normal but possibly more winded with activity. Initially, he also complained of blurry vision in each eye, not double vision, worse in left. He has chronic dry
eye. All of his symptoms improved and essentially resolved on 07/17/25.
Triage VS: T 98.2, P 99, RR 16, BP 165/92, SpO2 97%
On exam patient is AAO x 3, conversant; MIS, EOMI, bilateral scleral erythema. CV: mild tachycardia; Chest without wheezing, b/l LE lymphedema. No facial asymmetry, tongue protrusion midline, no pronator drift, 5/5 strength upper and lower
extrmeities.
LABS: WBC 5.4, Hg 10.6, PLT 193, Na 140, K+ 3.4, Cl 105, CO2 22, Cr 1.5, Glucose 107, liver enzymes WNL, Trop 0.027, bNP 668
MAR: IV Decadron, Duonebs, Tylenol
Lightheadedness
-concern for dehydration/ orthostatic hypotension; patient reported that he hadn't had breakfast or lunch today and he usually does -- this may have been contributing to symptoms.
-Improved with intravenous fluids
-Orthostatic vital signs negative
-hold Torsemide for now
-CT Head now given patient's initial report of loss of proprioception; CT Head negative and patient's symptoms resolved
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 Ingram, patient was advised to take additional Torsemide at home for swelling in legs or weight gain
HFpEF
-Patient reports significant weight gain
-Holding Torsemide as above, probably can do prn outpatient, consulted cardiology given concern for patient's RVR on standing and walking
Blurry Vision
-patient has dry eyes on exam, suspect this is contributing to blurry vision
-order eye drops and monitor response
-patient should follow up with [employer] at discharge
Right Lung Pulmonary Nodule
-nonurgent chest CT without IV contrast recommended
CKD IIIB
-creatinine at baseline
Paroxysmal Afib
Concern for A-Fib RVR
-continue DECK ENGINEER Eliquis
-Consulted CBC cardiology
Chronic b/l LE Lymphedema
-hold Torsemide for now
#asthma - Stable
#hypertension - Stable
#hyperlipidemia
#depression/anxiety
#GERD
Code Status: Full Code
DVT prophylaxis: Eliquis
Anticipated Discharge: Within 24 hours
Subjective/Interval History
-
Date of Service: July 17, 2025
Patient was seen and examined. He reported feeling much better and stated that he wants to go home today. Later in the day he developed fast heart rate.
Objective Data
-
Labs:
Laboratory Results
07/17/25
05:20
Sodium 139
Potassium 4.3 D
Chloride 108 H
Carbon Dioxide 21 L
BUN 27 H
Creatinine 1.3
Glucose 158 H
Calcium 9.1
Vital Signs:
Vital Signs
Temp Pulse Resp BP Pulse Ox
98.1 F 63 18 149/74 97
07/17/25 04:15 07/17/25 04:15 07/17/25 04:15 07/17/25 04:15 07/17/25 04:15
[2025-07-17] MEDS: ZYLOPRIM 200 MG PO (08:18)
[2025-07-17] MEDS: MAGNESIUM OXIDE 400 MG PO (08:18)
[2025-07-17] MEDS: ELIQUIS 5 MG PO (08:19)
[2025-07-17 10:15] VITALS: BP 153/74
[2025-07-17 11:00] VITALS: BP 147/63
--- NOTE | 2025-07-17 13:32 | CM ---
MAUDE met with Jelani to discuss discharge plans. He advised that he will return home at discharge and has a six horse hitch driver who will pick him up. It will take about a half hour for the six horse hitch driver to arrive once pt is ready to leave.
Plan: Discharge to home with no identified needs.
[2025-07-17 14:35] VITALS: BP 144/69; PULSE 61
[2025-07-17 15:00] VITALS: BP 145/85
--- NOTE | 2025-07-17 15:52 | CON.CAR ---
Addendum entered and electronically signed by Mik Hare MD 07/17/25 17:12:
I saw and evaluated the patient, and I provided the substantive portion of the medical decision making.
I reviewed and agree with the note by TRUPTI and it accurately reflects our care.
I personally performed the medical decision making of the this encounter and my assessment and plan is below:
80-year-old man with HFpEF, paroxysmal atrial fibrillation, aortic stenosis, and chronic lower extremity edema who presents with lightheadedness. Orthostatics were negative. Symptoms improved with eating and IV hydration. He is now asymptomatic
and wants to go home. He notes that he has been feeling more puffy over the past few weeks. Watch and belt are tight.
Physical exam: RRR, systolic murmur, decreased breath sounds at bilateral lung bases, chronic tense lower extremity edema
Lightheadedness: Orthostatics negative. Had not eaten the day he came in. Symptoms did improve with IV hydration so we will decrease his torsemide to every 48 hours. Overall I think he is volume overloaded and this will need to be increased in
the next few weeks.
Acute on chronic HFpEF: I recommended he stay for inpatient diuresis with close monitoring of BP/creatinine but he refused. As above, we will discharge him on torsemide 40 mg every 48 hours. We will add spironolactone 12.5 mg daily and have him
check labs in 1 week. SGLT2 inhibitor is cost prohibitive.
Original Note:
Consultation
Consultation Request
Date/Time Consultation Requested: 07/17/2025 15:00
Date/Time Consultation Performed: 07/17/2025 15:30
Requesting Provider: Dr. Horton
Performing Provider: TRUPTI Sellers for Dr. Hare
Reason for Consultation: Weight gain
Medical History
-
Chief Complaint: Lightheadedness
History of Present Illness:
Jelani Carter is a 80-year-old male (known to Dr. Ingram, his primary brand lead), with HFpEF, paroxysmal atrial fibrillation (status post ablation 02/09), aortic stenosis, HTN, CKD, and lung disease (decreased diffusion capacity), chronic LE
edema, hx pancytopenia attributed to ETOH (no longer uses ETOH), and obesity presented to the emergency department yesterday with chief complaint of lightheadedness. It was persistent throughout the day. Nothing made it better. Nothing made it
worse. He was given IV fluids. He did not have orthostasis. He is feeling better but endorses a 10 pound weight gain with worsening peripheral edema. Cardiology was consulted for diuresis recommendations. The patient is asking to be discharged
Past Medical History
Past Medical History: Arrhythmias (Paroxysmal atrial fibrillation), CHF, HTN, Renal Failure (CKD), Valvular Disease (Aortic stenosis) and Other (lung disease (low DLCO))
Past Surgical History: Orthopedic
Social History
Tobacco: Non-Smoker
Alcohol: Former
Family History
Family History: Reviewed & Not Pertinent
Allergies / Home Medications
Allergy/AdvReac Type Severity Reaction Status Date / Time
apple Allergy ITCHY MOUTH Verified 07/16/25 10:42
monosodium glutamate Allergy restless Verified 07/16/25 10:42
in bed
peach Allergy ITCHY MOUTH Verified 07/16/25 10:42
pollen extracts Allergy TRIGGERS Verified 07/16/25 10:42
ASTHMA
ragweed pollen Allergy TRIGGERS Verified 07/16/25 10:42
ASTHMA
�Medication �Instructions �Recorded �Confirmed �Type
torsemide 20 mg tablet 40 mg PO DAILY Fluid 09/28/22 07/16/25 History
retention/Swelling
acetaminophen 500 mg tablet 1,000 mg PO QID 10/15/24 07/16/25 History
apixaban 5 mg tablet (Eliquis) 5 mg PO BID Blood Clot 10/15/24 07/16/25 History
Prevention/Tx
allopurinol 100 mg tablet 200 mg PO DAILY 07/16/25 07/16/25 History
magnesium oxide 400 mg PO DAILY 07/16/25 07/16/25 History
Review of Systems
-
History Source: Patient
All other systems: Negative unless noted
Constitutional: Weight Gain and Fatigue
EENT: No Symptoms
Respiratory: No Symptoms
Cardiac: No Symptoms
Abdomen/GI: No Symptoms
: No Symptoms
Musculoskeletal: Edema
Skin: No Symptoms
Neurological: No Symptoms
Endocrine: No Symptoms
Hematologic/Lymphatic: No Symptoms
Physical Exam
Vital Signs
Temp Pulse Resp BP Pulse Ox
97.6 F 85 19 145/85 96
07/17/25 15:00 07/17/25 15:00 07/17/25 15:00 07/17/25 15:00 07/17/25 15:00
Lab Results
07/16/25 11:27
07/17/25 05:20
Troponin I 0.027 ng/ml 07/16/25 11:27
Jxy-I-Oyzwdsblzco Pept 668 pg/ml 07/16/25 11:27
Physical Exam
General: Well Developed, Well Nourished and No Apparent Distress
HEENT: Normocephalic and Moist Mucous Membranes
Respiratory: Clear and Non Labored Respirations
Cardiac: S1/S2 and Murmur (II/)
Breast: Deferred by me
GI: Soft, Non Tender, Non Distended and Normal Bowel Sounds
Rectal: Deferred by Provider
Genito-urinary: No Costovertebral Tender
Musculoskeletal: No Clubbing and No Cyanosis
Skin: Warm and Dry
Neuro: Awake and Alert
Hematologic/Lymphatic: No Lymphadenopathy
Psych: Calm
Impression / Plan
-
I/P: 80M with HFpEF, paroxysmal atrial fibrillation (status post ablation 02/09), aortic stenosis, HTN, CKD, and lung disease (decreased diffusion capacity), chronic LE edema, hx pancytopenia attributed to ETOH (no longer uses ETOH), and obesity
presented to the emergency department yesterday with chief complaint of lightheadedness.
Primary brand lead: Dr. Ingram
Lightheadedness
- This has completely resolved
- No orthostasis
- He had skipped 2 meals, perhaps this was a contributing factor
- Improved with IV fluid
HFpEF, acute on chronic
- He endorses a 10 pound weight gain and edema (tight shoes and tight watch)
- Recommend diuresis, he is requesting discharge, given lightheadedness we may need to decrease dosing
- SGLT2i has been unaffordable in the past, can consider MRA, this will require intensive monitoring given his underlying CKD
- Update echocardiogram
Paroxysmal atrial fibrillation
- Has been maintaining sinus since his ablation, not on any AV benjamin agents
- He tolerated metoprolol in the past, has been off since 08/2021, at that time he was transitioned to diltiazem now off
- Antiarrhythmic therapy: Flecainide stopped in 2018 (heart failure), dofetilide stopped for progressive ectopy, amiodarone being avoided for low DLCO
- Oral anticoagulation: Apixaban 5 mg twice daily, reassess dose at age 82
- [id number] score of at least 4 (CHF, HTN, age 80)
CAD, nonobstructive, stable without chest pain
Aortic stenosis, mild, update TTE with volume overload
Bilateral lymphedema, chronic, consider lymphedema therapy in the outpatient setting
CKD, stage III, stable
Reduced DLCO, chronic
Data Reviewed
-
EKG: Report Reviewed by me
Radiology: Report Reviewed by me
Medical Tests (Nuc Med, Echo etc): Report Reviewed by me
Labs: Labs Reviewed by me
Old Records: Reviewed
--- NOTE | 2025-07-17 17:00 | W.DCSUMMARY ---
Discharge Summary
Discharge Data
Date of Admission: 07/16/25
Date of Discharge: 07/17/25
Total time spent discharging patient (in min): 41
-
Pending Results: No
Hospital Course
80 y/o male with past medical history paroxysmal atrial fibrillation on Eliquis, asthma, HFpEF, essential HTN, CKD IIIB, chronic LE lymphedema and Lambert-Eaton myasthenic syndrome who presented to the emergency room complaining of lightheadedness
and feeling like he was going to pass out. Patient said that he had not eaten on the day he came in, and this was thought to contribute to symptoms. Patient's home Torsemide was held and he was given intravenous fluids. His symptoms improved.
Patient had dry eyes for which he had some blurry vision, this improved eye drops. Patient had a right lung nodule which would need to be followed up outpatient. CT Head was unremarkable (but please see the CT Head report for all the details).
Patient was really concerned about his recent rapid weight gain prior to coming to the hospital, so in the setting of his suspected dehydration (and near syncope from it) and his recent weight gain (volume overloaded state) outpatient, with question
of optimal diuretic regimen, cardiology was consulted. Cardiology recommended starting low dose Aldactone and continuing the Torsemide at a reduced frequency of every 48 hours. SGLT2 inhibitor was cost prohibitive. Patient refused to stay in the
hospital for close monitoring of his blood pressure, electrolytes creatinine. Patient was discharged with close follow-up with repeat BMP labwork within 1 week.
Discharge Plan
-
Patient Disposition: Home (Routine Discharge)
Discharge Diagnosis/Procedures: Lightheadedness
Heart Failure with Preserved Ejection Fraction
Blurry Vision
Right Lung Pulmonary Nodule
CKD IIIB
Paroxysmal Atrial Fibrillation
Chronic bilateral lower extremity lymphedema
Asthma
Hypertension
Hyperlipidemia
Depression/Anxiety
GERD
Chest X-Ray Findings (as per radiologist's report):
'FINDINGS:
Lungs: There is an oval density projected between the anterior right third and fourth ribs concerning for pulmonary nodule. This is new. It measures 1.0 cm. There is no pneumothorax. There are no pleural effusions.
Heart: The heart is top normal in size.There is minimal aortic arch calcification
Osseous structures: There is moderate degenerative disease throughout the thoracic spine.
IMPRESSION:
No acute disease of the chest
Possible right lung pulmonary nodule. Nonurgent chest CT examination without IV contrast recommended'
Condition: Good
Diet: 2 Gram Sodium and Restrict fluids to 48 oz
Activity: As tolerated
Others Tests: You need an updated echocardiogram. This should be completed prior to your office visit with cardiology. Please call the office to schedule.
Specialty Instructions: Weigh Daily- Call MD for wt gain/loss 3 lbs overnight/5 lbs in 1 week
Referrals:
Augie Randall PA [Family Provider, Family Practice] - in less than 1 week
Aarti Nevarez CRNP [Specified Professional Personl, Cardiology] - 07/30/25 10:00 am
Additional Discharge Medication Instructions: Spironolactone 12.5 mg daily is a new medication
Your Torsemide has been changed to 40 mg Q48H (no longer 40 mg daily)
Prescriptions:
New
spironolactone 25 mg tablet
12.5 mg PO DAILY Qty: 30 1RF
Continued
Eliquis 5 mg Tablet
5 mg PO BID
acetaminophen 500 mg Tablet
1,000 mg PO QID
allopurinol 100 mg Tablet
200 mg PO DAILY
magnesium oxide 400 mg magnesium Tablet
400 mg PO DAILY
Changed
torsemide 20 mg Tablet
40 mg PO Q48H Qty: 0 0RF
Discharge Orders:
Discharge Patient (As Directed); Ordered 07/17/25
Ordered By: Marcel Horton
Discharge Date and Time
Discharge Date/Time: 07/17/25 18:19
Print Language: BRAZILIAN
== END 2025-07-17 18:19 | disposition home or self-care (01) ==
LOC: 3 WEST ACU 15:33
PROVIDERS: Nurse Practitioner Family; ADMITTING PHYSICIAN Student in an Organized Health Care Education/Training Program; ATTENDING PHYSICIAN Hospitalist; CONSULT PHYSICIAN Student in an Organized Health Care Education/Training Program; EMERGENCY PHYSICIAN Emergency Medicine; FAMILY PHYSICIAN Physician Assistant
DX: R42 Dizziness and giddiness (principal); N18.32 Chronic kidney disease, stage 3b; I50.33 Acute on chronic diastolic (congestive) heart failure; I89.0 Lymphedema, not elsewhere classified; H53.8 Other visual disturbances; I13.0 Hypertensive heart and chronic kidney disease with heart failure and stage 1 through stage 4 chronic kidney disease, or unspecified chronic kidney disease; E78.5 Hyperlipidemia, unspecified; F41.9 Anxiety disorder, unspecified; F32.A Depression, unspecified; K21.9 Gastro-esophageal reflux disease without esophagitis; Z85.820 Personal history of malignant melanoma of skin; G70.80 Lambert-Eaton syndrome, unspecified; I44.0 Atrioventricular block, first degree; Z79.01 Long term (current) use of anticoagulants; Z79.899 Other long term (current) drug therapy; Z87.891 Personal history of nicotine dependence; R91.1 Solitary pulmonary nodule; J45.909 Unspecified asthma, uncomplicated; E66.9 Obesity, unspecified; Z68.34 Body mass index [BMI] 34.0-34.9, adult; I25.10 Atherosclerotic heart disease of native coronary artery without angina pectoris; I27.20 Pulmonary hypertension, unspecified; I48.0 Paroxysmal atrial fibrillation; Z89.011 Acquired absence of right thumb
CPT/HCPCS: 70450; 71046; 80048; 80053; 83735; 83880; 84484; 85025; 93005; 93306; 94640; 96374; 97116; 97163; 97167; 99285; G0378

== ENCOUNTER → 2025-08-24 08:00 | Outpatient (REF) | payer MEDICARE, OTHER, SELFPAY | LOC: WOUND 08:00 | PROVIDERS: ATTENDING PHYSICIAN Surgery; FAMILY PHYSICIAN Physician Assistant | DX: I87.312 Chronic venous hypertension (idiopathic) with ulcer of left lower extremity (principal); L97.521 Non-pressure chronic ulcer of other part of left foot limited to breakdown of skin; I73.9 Peripheral vascular disease, unspecified; I87.2 Venous insufficiency (chronic) (peripheral); I50.32 Chronic diastolic (congestive) heart failure; N18.32 Chronic kidney disease, stage 3b; G70.80 Lambert-Eaton syndrome, unspecified | CPT/HCPCS: 99204 ==